=== PATIENT | female | born 1980 | race American Indian/Alaskan Native ===

== ENCOUNTER 2017-03-13 22:10 | Emergency (ER) | payer SELFPAY ==
[2017-03-13 23:00] LABS: Bilirubin,Urine NEG (Negative); Blood,Urine NEG (Negative); Ketones,Urine NEG (Negative); Leukocyte Esterase,Urine NEG (Negative); Nitrite,Urine NEG (Negative); Protein,Urine <15 mg/dL mg/dL (Negative); WBC,Urine < 1.0 /HPF (0.0-6.0)
--- NOTE | 2017-03-13 23:41 | XRay Report ---
FINAL REPORT EXAM: XR FOOT 2V RT HISTORY: INJURY/PAIN COMPARISON: None available. FINDINGS: Two views of right foot obtained. Moderate plantar calcaneal spur. Small well corticated bony fragment adjacent to the navicular bone likely reflecting a small ossicle. No acute fracture dislocation. Joint spaces are preserved. IMPRESSION: No acute bony abnormality.
[2017-03-14 03:53] VITALS: BP 149/81
--- NOTE | 2017-03-14 04:53 | Emergency Department Report ---
ED Extremity Problem HPI - General Chief complaint: Extremity Injury, Lower Stated complaint: RIGHT FOOT PAIN Time Seen by Provider: 03/14/17 04:03 Source: patient Mode of arrival: Ambulatory Limitations: No Limitations - History of Present Illness Initial comments: 37-year-old female past medical history none presents with complaint of over one week of right foot pain. States a box at work accidentally fell on her right foot. Is ambulatory without assistance but is complaining of some mid right foot pain. Awake alert and oriented 3. Denies any other injuries. Has not taken any rqmy-day-acpigfe medicines at home for the pain. Pain currently 5 out of 10. Patient states the pain is worse at the end of the workday. 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 Complaint: extremity pain Onset/Timin -: week(s) Location: right Severity scale (0 -10): 2 Quality: aching Consistency: intermittent Worsens with: weight bearing - Related Data Home Medications Medication Instructions Recorded Confirmed Last Taken NIFEdipine [NIFEdipine XL] 30 mg PO QDAY 08/10/13 08/10/13 08/09/13 09:00 Previous Rx's Medication Instructions Recorded Last Taken Type Ferrous Sulfate [Feosol 325 MG tab] 325 mg PO BID #60 tablet 04/21/13 08/09/13 09:00 Rx Ibuprofen [Motrin 800 MG tab] 800 mg PO Q6H PRN #30 tablet 04/21/13 08/10/13 09: 00 Rx oxyCODONE /ACETAMINOPHEN [Percocet 1 - 2 tab PO Q4H PRN #30 tablet 04/21/1303/01 Rx 5/325 mg] Ibuprofen [Motrin] 800 mg PO Q8HR PRN #30 tablet 03/14/17 Unknown Rx Allergies Allergy/AdvReac Type Severity Reaction Status Date / Time No Known Allergies Allergy Verified 08/10/13 09:36 ED Review of Systems ROS: Stated complaint: RIGHT FOOT PAIN Other details as noted in HPI Constitutional: denies: chills, fever Eyes: denies: eye pain, eye discharge, vision change ENT: denies: ear pain, throat pain Respiratory: denies: cough, shortness of breath, wheezing Cardiovascular: denies: chest pain, palpitations Endocrine: no symptoms reported Gastrointestinal: denies: abdominal pain, nausea, diarrhea Genitourinary: denies: urgency, dysuria, discharge Musculoskeletal: as per HPI (right foot pain). denies: back pain, joint swelling, arthralgia Skin: denies: rash, lesions Neurological: denies: headache, weakness, paresthesias Psychiatric: denies: anxiety, depression Hematological/Lymphatic: denies: easy bleeding, easy bruising ED Past Medical Hx - Past Medical History Hx Hypertension: No Hx Congestive Heart Failure: No Hx Diabetes: Yes (gestational) Hx Deep Vein Thrombosis: No Hx Renal Disease: No Hx Sickle Cell Disease: No Hx Seizures: No Hx Asthma: Yes Hx COPD: No Hx HIV: No Additional medical history: hx of gestational diabetes, exposure to herpes (DO NOT DISCUSS IN FRONT OF VISITORS). - Surgical History Additional Surgical History: 04/21/13, hernia repair when 5 yrs old - Social History Smoking Status: Never Smoker Substance Use Type: Alcohol - Medications Home Medications: Home Medications Medication Instructions Recorded Confirmed Last Taken Type Ferrous Sulfate [Feosol 325 MG tab] 325 mg PO BID #60 tablet 04/21/13 08/10/13 08/09/13 09:00 Rx Ibuprofen [Motrin 800 MG tab] 800 mg PO Q6H PRN #30 tablet 04/21/13 08/10/13 09:00 Rx oxyCODONE /ACETAMINOPHEN [Percocet 1 - 2 tab PO Q4H PRN #30 tablet 04/21/1304/28/13 Rx 5/325 mg] NIFEdipine [NIFEdipine XL] 30 mg PO QDAY 08/10/13 08/10/13 08/09/13 09:00 History Ibuprofen [Motrin] 800 mg PO Q8HR PRN #30 tablet 03/14/17 Unknown Rx ED Physical Exam - General Limitations: No Limitations General appearance: alert, in no apparent distress - Head Head exam: Present: atraumatic, normocephalic - Eye Eye exam: Present: normal appearance, PERRL, EOMI - ENT ENT exam: Present: mucous membranes moist - Neck Neck exam: Present: normal inspection - Respiratory Respiratory exam: Present: normal lung sounds bilaterally. Absent: respiratory distress - Cardiovascular Cardiovascular Exam: Present: regular rate, normal rhythm. Absent: systolic murmur, diastolic murmur, rubs, gallop - GI/Abdominal GI/Abdominal exam: Present: soft, normal bowel sounds - Extremities Exam Extremities exam: Present: normal inspection - Expanded Lower Extremity Exam Right Hip exam: Present: normal inspection, full ROM Upper Leg exam: Present: normal inspection, full ROM Knee exam: Present: normal inspection, full ROM Lower Leg exam: Present: normal inspection, full ROM Ankle exam: Present: normal inspection, full ROM (dorsi and plantar flexion intact, inversion eversion intact) Foot/Toe exam: Present: normal inspection, full ROM, tenderness (some tenderness and bottom of foot sole) Neuro vascular tendon exam: Present: no vascular compromise (distal dorsalis pedis and posterior tibial pulses intact) Gait: Positive: observed and normal - Back Exam Back exam: Present: normal inspection - Neurological Exam Neurological exam: Present: alert, oriented X3, CN II-XII intact, normal gait - Psychiatric Psychiatric exam: Present: normal affect, normal mood - Skin Skin exam: Present: warm, dry, intact, normal color. Absent: rash ED Course Vital Signs 03/13/17 03/14/17 22:13 03:52 Temperature 98.3 F 98.6 F Pulse Rate 106 H 111 H Respiratory 16 18 Rate Blood Pressure 156/99 Blood Pressure 156/99 149/81 [Left] O2 Sat by Pulse 99 100 Oximetry ED Medical Decision Making - Medical Decision Making A/P: Plantar fasciitis, right foot pain 1-x-ray shows no fractures, heel spur and tiny osteophyte 2-patient ambulatory without assistance 3-NSAIDs when necessary, I advised patient that she needs comfortable and supportive footwear 4-follow-up with podiatry Critical care attestation.: If time is entered above; I have spent that time in minutes in the direct care of this critically ill patient, excluding procedure time. ED Disposition Clinical Impression: Right foot pain, Plantar fasciitis of right foot Disposition: DC-01 TO HOME OR SELFCARE Is pt being admited?: No Does the pt Need Aspirin: No Condition: Stable Instructions: Plantar Fasciitis (ED) Additional Instructions: [email or web address] Prescriptions: Ibuprofen [Motrin] 800 mg PO Q8HR PRN #30 tablet PRN Reason: Pain Referrals: ROSHNI TSE DPM [Staff Physician] - 3-5 Days Forms: Work/School Release Form(ED) Time of Disposition: 04:53
== END 2017-03-14 05:08 | disposition home or self-care (01) ==
LOC: ED 22:10
DX: M72.2 Plantar fascial fibromatosis (principal); J45.909 Unspecified asthma, uncomplicated
CPT/HCPCS: 99283

== ENCOUNTER 2017-04-13 20:00 | Emergency (ER) | payer OTHER ==
[2017-04-13 21:26] VITALS: BP 128/78
--- NOTE | 2017-04-14 05:02 | Emergency Department Report ---
ED Lower Extremity HPI - General Chief Complaint: Extremity Injury, Lower Stated Complaint: RIGHT FOOT PAIN Time Seen by Provider: 04/14/17 04:47 Source: patient Mode of arrival: Ambulatory Limitations: No Limitations - History of Present Illness Initial Comments: Patient is a 37-year-old -[place] female who presents for right ankle pain and swelling intermittently 4 weeks , patient diagnosed with heel spurs patient denies new fall injury or trauma, patient states primary complaint is pain 4/10 and swelling after working 8-10 shifts standing, patient requesting pain medication and work excuse patient has not followed up with podiatry or orthopedic surgery, there are no new symptoms no numbness no tingling or paresthesia symptom are temporarily relieved by off loading and elevated right foot. MD Complaint: foot injury Onset/Timin -: week(s) Injury: Foot: Right Type of Injury: other (none) Place: home Severity: moderate Severity scale (0 -10): 4 Improves With: rest Worsens With: weight bearing, movement, palpation Context: other (none) Other Symptoms: other (none) Associated Symptoms: swelling, able to partially bear weight - Related Data Home Medications Medication Instructions Recorded Confirmed Last Taken NIFEdipine [NIFEdipine XL] 30 mg PO QDAY 08/10/13 08/10/13 08/09/13 09:00 Previous Rx's Medication Instructions Recorded Last Taken Type Ferrous Sulfate [Feosol 325 MG tab] 325 mg PO BID #60 tablet 04/21/13 08/09/13 09:00 Rx Ibuprofen [Motrin 800 MG tab] 800 mg PO Q6H PRN #30 tablet 04/21/13 08/10/13 09: 00 Rx oxyCODONE /ACETAMINOPHEN [Percocet 1 - 2 tab PO Q4H PRN #30 tablet 04/21/1303/01 Rx 5/325 mg] Ibuprofen [Motrin] 800 mg PO Q8HR PRN #30 tablet 03/14/17 Unknown Rx Cyclobenzaprine [Flexeril] 10 mg PO TID PRN #30 tablet 04/14/17 Unknown Rx Naproxen [Naprosyn] 500 mg PO BID PRN #30 tablet 04/14/17 Unknown Rx Allergies Allergy/AdvReac Type Severity Reaction Status Date / Time No Known Allergies Allergy Verified 08/10/13 09:36 ED Review of Systems ROS: Stated complaint: RIGHT FOOT PAIN Other details as noted in HPI Constitutional: denies: chills, fever Eyes: denies: eye pain, eye discharge, vision change ENT: denies: ear pain, throat pain Respiratory: denies: cough, shortness of breath, wheezing Cardiovascular: denies: chest pain, palpitations Endocrine: no symptoms reported Gastrointestinal: denies: abdominal pain, nausea, diarrhea Genitourinary: denies: urgency, dysuria, discharge Musculoskeletal: joint swelling, arthralgia. denies: back pain Skin: denies: rash, lesions Neurological: denies: headache, weakness, paresthesias Psychiatric: denies: anxiety, depression Hematological/Lymphatic: denies: easy bleeding, easy bruising ED Past Medical Hx - Past Medical History Previous Medical History?: Yes Hx Hypertension: No Hx Congestive Heart Failure: No Hx Diabetes: Yes (gestational) Hx Deep Vein Thrombosis: No Hx Renal Disease: No Hx Sickle Cell Disease: No Hx Seizures: No Hx Asthma: Yes Hx COPD: No Hx HIV: No Additional medical history: hx of gestational diabetes, exposure to herpes (DO NOT DISCUSS IN FRONT OF VISITORS). - Surgical History Past Surgical History?: Yes Additional Surgical History: 04/21/13, hernia repair when 5 yrs old - Social History Smoking Status: Never Smoker Substance Use Type: None - Medications Home Medications: Home Medications Medication Instructions Recorded Confirmed Last Taken Type Ferrous Sulfate [Feosol 325 MG tab] 325 mg PO BID #60 tablet 04/21/13 08/10/13 08/09/13 09:00 Rx Ibuprofen [Motrin 800 MG tab] 800 mg PO Q6H PRN #30 tablet 04/21/13 08/10/13 09:00 Rx oxyCODONE /ACETAMINOPHEN [Percocet 1 - 2 tab PO Q4H PRN #30 tablet 04/21/1304/28/13 Rx 5/325 mg] NIFEdipine [NIFEdipine XL] 30 mg PO QDAY 08/10/13 08/10/13 08/09/13 09:00 History Ibuprofen [Motrin] 800 mg PO Q8HR PRN #30 tablet 03/14/17 Unknown Rx Cyclobenzaprine [Flexeril] 10 mg PO TID PRN #30 tablet 04/14/17 Unknown Rx Naproxen [Naprosyn] 500 mg PO BID PRN #30 tablet 04/14/17 Unknown Rx ED Physical Exam - General Limitations: No Limitations General appearance: alert, in no apparent distress - Head Head exam: Present: atraumatic, normocephalic - Eye Eye exam: Present: normal appearance - ENT ENT exam: Present: mucous membranes moist - Neck Neck exam: Present: normal inspection - Respiratory Respiratory exam: Present: normal lung sounds bilaterally. Absent: respiratory distress - Cardiovascular Cardiovascular Exam: Present: regular rate, normal rhythm. Absent: systolic murmur, diastolic murmur, rubs, gallop - GI/Abdominal GI/Abdominal exam: Present: soft, normal bowel sounds - Rectal Rectal exam: Present: deferred - Extremities Exam Extremities exam: Present: full ROM, tenderness (right heel ), normal capillary refill, joint swelling. Absent: pedal edema, calf tenderness - Expanded Lower Extremity Exam Right Ankle exam: Present: full ROM, swelling (right lateral ankle ). Absent: abrasion, laceration, ecchymosis, deformity, crepidus, dislocation, erythema, anterior draw sign Foot/Toe exam: Present: full ROM, tenderness, swelling (right lateral ankle swelling ), calcaneal tenderness (righ heel tenderness no deformity no ecchymosis ). Absent: abrasion, laceration, ecchymosis, deformity, crepidus, dislocation, erythema, amputation, puncture wound, foreign body, tenderness at base of 5th metatarsal, nail avulsion, subungual hematoma Neuro vascular tendon exam: Present: no vascular compromise, abnormal cap refill. Absent: pulse deficit, motor deficit, sensory deficit, tendon deficit, extremity cold to touch, pallor, abnormal 2-point discrimination, decreased fine /light touch, foot drop, peroneal nerve deficit, significant pain with passive ROM of distal joint Gait: Positive: observed and limited by pain - Back Exam Back exam: Present: normal inspection, full ROM. Absent: tenderness, CVA tenderness (R), CVA tenderness (L), muscle spasm, paraspinal tenderness, vertebral tenderness, rash noted - Neurological Exam Neurological exam: Present: alert, oriented X3, CN II-XII intact, abnormal gait (gait limited by pain ), reflexes normal - Expanded Neurological Exam Expanded Patient oriented to: Present: person, place, time Speech: Present: fluid speech Cranial nerves: EOM's Intact: Normal, Gag Reflex: Normal, Tongue Deviation: Normal, Nystagmus: Normal Cerebellar function: Finger to Nose: Normal, Heel to Dorsey: Normal, Romberg: Normal Upper motor neuron: Michael Neglect: Normal, Pronator Drift: Normal, Babinski Sign : Normal, Sensory Extinction: Normal Sensory exam: Upper Extremity Light Touch: Normal, Upper Extremity Pin Prick: Normal, Upper Extremity Temperature: Normal, UE 2 Point Discrimination: Normal, Lower Extremity Light Touch: Normal, Lower Extremity Pin Prick: Normal, Lower Extremity Temperature: Normal, LE 2 Point Discrimination: Normal Motor strength exam: RUE: 5, LUE: 5, RLE: 5, LLE: 5 DTR: bicep (R): 0, bicep (L): 0, tricep (R): 0, tricep (L): 0, knee (R): 0, knee (L): 0, ankle (R): 0, ankle (L): 0 Best Eye Response (Audra): (4) open spontaneously Best Motor Response (Recluse): (6) obeys commands Best Verbal Response (Recluse): (5) oriented Recluse Total: 15 - Psychiatric Psychiatric exam: Present: normal affect, normal mood - Skin Skin exam: Present: warm, dry, intact, normal color. Absent: rash ED Course Vital Signs 04/13/17 21:17 Temperature 98.4 F Pulse Rate 105 H Respiratory 18 Rate Blood Pressure 128/78 O2 Sat by Pulse 100 Oximetry ED Lower Extremity MDM - Medical Decision Making Patient is a 37-year-old -[place] female who presents for right ankle pain and swelling intermittently 4 weeks , patient diagnosed with heel spurs patient denies new fall injury or trauma, patient states primary complaint is pain 4/10 and swelling after working 8-10 shifts standing, patient requesting pain medication and work excuse patient has not followed up with podiatry or orthopedic surgery, there are no new symptoms no numbness no tingling or paresthesia symptom are temporarily relieved by off loading and elevated right foot. exam: right lateral ankle swelling no ecchymosis no deformity ppepb+2 pt is ambulatory with mild limp, pt wearing regular tennis shoes as she states there the most comfortable, plan: ortho shoe, NSAIDs and Muscle relaxants, rice therapy, ankle exercises, pt directed to [facility] or orthopedic Dr. Franklin as previously directed pt verbalized agreement and understanding of same, pt will be dc'd to self in stable condition at this time. Critical care attestation.: If time is entered above; I have spent that time in minutes in the direct care of this critically ill patient, excluding procedure time. ED Disposition Clinical Impression: Heel spur Qualifiers: Laterality: right Qualified Code(s): M77.31 - Calcaneal spur, right foot Right ankle strain Qualifiers: Encounter type: sequela Qualified Code(s): S96.911S - Strain of unspecified muscle and tendon at ankle and foot level, right foot, sequela Disposition: DC-01 TO HOME OR SELFCARE Is pt being admited?: No Does the pt Need Aspirin: No Instructions: Ankle Sprain (ED), Plantar Fasciitis (ED), Arthralgia (ED), Ankle Exercises (GEN) Prescriptions: Cyclobenzaprine [Flexeril] 10 mg PO TID PRN #30 tablet PRN Reason: Muscle Spasm Naproxen [Naprosyn] 500 mg PO BID PRN #30 tablet PRN Reason: Pain Referrals: JAMMIE PACHECO MD [Primary Care Provider] - 3-5 Days KATELYN FRANKLIN MD [Staff Physician] - 3-5 Days Forms: Work/School Release Form(ED) Time of Disposition: 05:20
[2017-04-14] MEDS ORDERED: ULTRAM PO ONE (05:08)
== END 2017-04-14 05:51 | disposition home or self-care (01) ==
LOC: ED 20:00
DX: S96.911D Strain of unspecified muscle and tendon at ankle and foot level, right foot, subsequent encounter (principal); M77.9 Enthesopathy, unspecified; X58.XXXD Exposure to other specified factors, subsequent encounter
CPT/HCPCS: 99283

== ENCOUNTER 2017-07-12 18:32 | Emergency (ER) | payer SELFPAY ==
[2017-07-12 19:41] VITALS: BP 164/88
--- NOTE | 2017-07-12 20:22 | Emergency Department Report ---
HPI - General Chief Complaint: Extremity Injury, Lower Time Seen by Provider: 07/12/17 19:57 - HPI HPI: This is a 37-year-old female with no prior medical history who presents to ED complaining of right ankle pain 1 day. Patient states earlier this morning when she was on her way to work she twisted her ankle and thinks she sprained it. Patient states that she had a prescription of naproxen and Flexeril and took it at home and it helped with the pain. Patient states that she is here to have the examining needs a work note to return to work. She denies difficulty walking, loss of sensation, lesions, swelling. She admits throbbing , aching, nonradiating pain localized to the right ankle. ED Past Medical Hx - Past Medical History Hx Hypertension: No Hx Congestive Heart Failure: No Hx Diabetes: Yes (gestational) Hx Deep Vein Thrombosis: No Hx Renal Disease: No Hx Sickle Cell Disease: No Hx Seizures: No Hx Asthma: Yes Hx COPD: No Hx HIV: No Additional medical history: hx of gestational diabetes, exposure to herpes (DO NOT DISCUSS IN FRONT OF VISITORS). - Surgical History Additional Surgical History: 04/21/13, hernia repair when 5 yrs old - Social History Smoking Status: Never Smoker Substance Use Type: None - Medications Home Medications: Home Medications Medication Instructions Recorded Confirmed Last Taken Type Ferrous Sulfate [Feosol 325 MG tab] 325 mg PO BID #60 tablet 04/21/13 08/10/13 08/09/13 09:00 Rx Ibuprofen [Motrin 800 MG tab] 800 mg PO Q6H PRN #30 tablet 04/21/13 08/10/13 09:00 Rx oxyCODONE /ACETAMINOPHEN [Percocet 1 - 2 tab PO Q4H PRN #30 tablet 04/21/1304/28/13 Rx 5/325 mg] NIFEdipine [NIFEdipine XL] 30 mg PO QDAY 08/10/13 08/10/13 08/09/13 09:00 History Ibuprofen [Motrin] 800 mg PO Q8HR PRN #30 tablet 03/14/17 Unknown Rx Cyclobenzaprine [Flexeril] 10 mg PO TID PRN #30 tablet 04/14/17 Unknown Rx Naproxen [Naprosyn] 500 mg PO BID PRN #30 tablet 07/12/17 Unknown Rx ED Review of Systems ROS: Stated complaint: ANKLE PAIN Other details as noted in HPI Constitutional: denies: chills, fever Eyes: denies: eye pain, eye discharge, vision change ENT: denies: ear pain, throat pain Respiratory: denies: cough, shortness of breath, wheezing Cardiovascular: denies: chest pain, palpitations Endocrine: no symptoms reported Gastrointestinal: denies: abdominal pain, nausea, diarrhea Genitourinary: denies: urgency, dysuria, discharge Musculoskeletal: arthralgia. denies: back pain, joint swelling Skin: denies: rash, lesions Neurological: denies: headache, weakness, paresthesias Psychiatric: denies: anxiety, depression Hematological/Lymphatic: denies: easy bleeding, easy bruising Physical Exam - Physical Exam Vital Signs: Vital Signs 07/12/17 19:39 Temperature 98.5 F Pulse Rate 98 H Respiratory 18 Rate Blood Pressure 164/88 O2 Sat by Pulse 100 Oximetry Physical Exam: GENERAL: Alert and oriented x3, no apparent distress, Normal Gait, atraumatic. HEAD: Head is normocephalic and a-traumatic. EYES: Extra ocular muscles are intact. Pupils are equal, round, and reactive to light and accommodation. LUNGS: Symetrical with respiration, No wheezing, no rales or crackles, CTAB. HEART: S1, S2 present, regular rate and rhythm without murmur, no rubs, no gallops. Non tender to palpation EXTREMITIES/MUSCULOSKELETAL: Right ankle shows No cyanosis, no clubbing, no rash , no lesions or edema. Full ROM bilaterally. UE/LE Pulses 2+ bilaterally. LE and UE 5+ strength bilaterally, patient able to flex and extend her foot without any problems. Ankle warm to touch patient able to apply pressure without any problems. NEUROLOGIC: The patient is cooperative with no focal neurologic deficits.Normal speech. Normal sensation in bilateral upper and lower extremities, No loss of sensation, SKIN: Warm and dry, No lesions, No ulceration or induration present. ED Course Vital Signs 07/12/17 19:39 Temperature 98.5 F Pulse Rate 98 H Respiratory 18 Rate Blood Pressure 164/88 O2 Sat by Pulse 100 Oximetry ED Medical Decision Making - Medical Decision Making 37-year-old female presents with right ankle strain ED course: Patient states" feeling much better after she is rested it and ice it. I discussed the patient continue taking naproxen and Flexeril as needed I discussed the patient to rest ankle and keep it elevated and continue ice compression daily I discussed to follow up with primary care physician. Patient has no neuro deficit. Critical care attestation.: If time is entered above; I have spent that time in minutes in the direct care of this critically ill patient, excluding procedure time. ED Disposition Clinical Impression: Right ankle strain Qualifiers: Encounter type: initial encounter Qualified Code(s): S96.911A - Strain of unspecified muscle and tendon at ankle and foot level, right foot, initial encounter Disposition: TO HOME OR SELFCARE Is pt being admited?: No Does the pt Need Aspirin: No Condition: Stable Instructions: Ankle Exercises (GEN), Arthralgia (ED), RICE Therapy (ED) Additional Instructions: Make sure to follow up with the primary care physician as discussed. Take all your medications as you've been prescribed. If you have any worsening symptoms or develop new symptoms please return to ED immediately. Prescriptions: Naproxen [Naprosyn] 500 mg PO BID PRN #30 tablet PRN Reason: Pain Referrals: RENAY LEVY MD [Referring] - 3-5 Days [facility] [Outside] - 3-5 Days [facility] [Outside] - 3-5 Days Forms: Work/School Release Form Time of Disposition: 20:22
== END 2017-07-12 20:28 | disposition home or self-care (01) ==
LOC: ED 18:32
DX: S96.911A Strain of unspecified muscle and tendon at ankle and foot level, right foot, initial encounter (principal); J45.909 Unspecified asthma, uncomplicated; W22.8XXA Striking against or struck by other objects, initial encounter; Y93.89 Activity, other specified; Y92.89 Other specified places as the place of occurrence of the external cause; Y99.8 Other external cause status
CPT/HCPCS: 99282

== ENCOUNTER 2017-11-05 16:29 | Emergency (ER) | payer SELFPAY ==
[2017-11-05 17:24] LABS: Bilirubin,Urine NEG (Negative); Blood,Urine NEG (Negative); Color,Urine Yellow (Yellow); Mucus,Urine FEW /HPF; Protein,Urine <15 mg/dL mg/dL (Negative)
[2017-11-05 17:34] LABS: HCG Qualitative,Urine Negative (Negative)
[2017-11-05] MEDS ORDERED: ZOFRAN ODT PO ONE (21:08)
--- NOTE | 2017-11-05 21:21 | Emergency Department Report ---
ED N/V/D HPI - General Chief complaint: Nausea/Vomiting/Diarrhea Stated complaint: N/V/D Time Seen by Provider: 11/05/17 21:07 Source: patient Mode of arrival: Ambulatory Limitations: No Limitations - History of Present Illness Initial comments: 37-year-old -Armenian female comes into the emergency room for complaint of nausea vomiting and diarrhea since yesterday. Patient reports that she vomited twice today and had last diarrhea episode was doing her ER visit. She reports that she is able to drink fluids but not able to hold down foods. She denies abdominal pain no fever no chills. She denies any dysuria no vaginal bleeding or vaginal discharge. She does admit to nausea at this time. Last menstrual period was last month only lasted 2 days. It was noted in triage the patient was mildly tachycardia at 102. MD complaint: nausea, vomiting, diarrhea -: days(s) (1) Description of Vomiting: food contents Description of Diarrhea: water Associated Abdominal Pain: No Improves with: rest Worsens with: eating Associated Symptoms: denies other symptoms - Related Data Home Medications Medication Instructions Recorded Confirmed Last Taken NIFEdipine [NIFEdipine XL] 30 mg PO QDAY 08/10/13 08/10/13 08/09/13 09:00 Previous Rx's Medication Instructions Recorded Last Taken Type Ferrous Sulfate [Feosol 325 MG tab] 325 mg PO BID #60 tablet 04/21/13 08/09/13 09:00 Rx Ibuprofen [Motrin 800 MG tab] 800 mg PO Q6H PRN #30 tablet 04/21/13 08/10/13 09: 00 Rx oxyCODONE /ACETAMINOPHEN [Percocet 1 - 2 tab PO Q4H PRN #30 tablet 04/21/1303/01 Rx 5/325 mg] Ibuprofen [Motrin] 800 mg PO Q8HR PRN #30 tablet 03/14/17 Unknown Rx Cyclobenzaprine [Flexeril] 10 mg PO TID PRN #30 tablet 04/14/17 Unknown Rx Naproxen [Naprosyn] 500 mg PO BID PRN #30 tablet 07/12/17 Unknown Rx Allergies Allergy/AdvReac Type Severity Reaction Status Date / Time No Known Allergies Allergy Verified 11/05/17 16:40 ED Review of Systems ROS: Stated complaint: N/V/D Other details as noted in HPI Constitutional: denies: chills, fever Eyes: denies: eye pain, eye discharge, vision change ENT: denies: ear pain, throat pain Respiratory: denies: cough, shortness of breath, wheezing Cardiovascular: denies: chest pain, palpitations Endocrine: no symptoms reported Gastrointestinal: nausea, vomiting, diarrhea. denies: abdominal pain Genitourinary: denies: urgency, dysuria, discharge Musculoskeletal: denies: back pain, joint swelling, arthralgia Skin: denies: rash, lesions Neurological: denies: headache, weakness, paresthesias Psychiatric: denies: anxiety, depression Hematological/Lymphatic: denies: easy bleeding, easy bruising ED Past Medical Hx - Past Medical History Hx Hypertension: No Hx Congestive Heart Failure: No Hx Diabetes: Yes (gestational) Hx Deep Vein Thrombosis: No Hx Renal Disease: No Hx Sickle Cell Disease: No Hx Seizures: No Hx Asthma: Yes Hx COPD: No Hx HIV: No Additional medical history: hx of gestational diabetes, exposure to herpes (DO NOT DISCUSS IN FRONT OF VISITORS). - Surgical History Additional Surgical History: 04/21/13, hernia repair when 5 yrs old - Social History Smoking Status: Never Smoker Substance Use Type: None - Medications Home Medications: Home Medications Medication Instructions Recorded Confirmed Last Taken Type Ferrous Sulfate [Feosol 325 MG tab] 325 mg PO BID #60 tablet 04/21/13 08/10/13 08/09/13 09:00 Rx Ibuprofen [Motrin 800 MG tab] 800 mg PO Q6H PRN #30 tablet 04/21/13 08/10/13 09:00 Rx oxyCODONE /ACETAMINOPHEN [Percocet 1 - 2 tab PO Q4H PRN #30 tablet 04/21/1304/28/13 Rx 5/325 mg] NIFEdipine [NIFEdipine XL] 30 mg PO QDAY 08/10/13 08/10/13 08/09/13 09:00 History Ibuprofen [Motrin] 800 mg PO Q8HR PRN #30 tablet 03/14/17 Unknown Rx Cyclobenzaprine [Flexeril] 10 mg PO TID PRN #30 tablet 04/14/17 Unknown Rx Naproxen [Naprosyn] 500 mg PO BID PRN #30 tablet 07/12/17 Unknown Rx ED Physical Exam - General Limitations: No Limitations General appearance: alert, in no apparent distress - Head Head exam: Present: atraumatic, normocephalic - ENT ENT exam: Present: mucous membranes moist - Neck Neck exam: Present: full ROM. Absent: lymphadenopathy - Respiratory Respiratory exam: Present: normal lung sounds bilaterally. Absent: respiratory distress - Cardiovascular Cardiovascular Exam: Present: regular rate, normal rhythm. Absent: systolic murmur, diastolic murmur, rubs, gallop - GI/Abdominal GI/Abdominal exam: Present: soft, normal bowel sounds - Extremities Exam Extremities exam: Present: normal inspection - Neurological Exam Neurological exam: Present: alert, oriented X3 - Psychiatric Psychiatric exam: Present: normal affect, normal mood - Skin Skin exam: Present: warm, dry, intact, normal color. Absent: rash ED Course Vital Signs 11/05/17 11/05/17 16:41 21:24 Temperature 98.3 F Pulse Rate 102 H 93 H Respiratory 18 12 Rate Blood Pressure 148/73 Blood Pressure 140/80 [Right] O2 Sat by Pulse 98 100 Oximetry - Reevaluation(s) Reevaluation #1: 11/05/17 23:04 Patient was given Zofran and by mouth trial which she has not had any experience of vomiting or nausea. ED Medical Decision Making - Medical Decision Making Patient has been evaluated by this provider fast track. Patient is given Zofran 8 mg ODT. By mouth challenge to start in 30 minutes after having Zofran. Patient had a urinalysis which is normal there is no ketones noted. HCG negative. Critical care attestation.: If time is entered above; I have spent that time in minutes in the direct care of this critically ill patient, excluding procedure time. ED Disposition Clinical Impression: Gastroenteritis Disposition: DC-01 TO HOME OR SELFCARE Is pt being admited?: No Does the pt Need Aspirin: No Condition: Stable Instructions: Gastroenteritis (ED) Additional Instructions: Please continue to drink plenty of fluids and advance her diet as tolerated starting off with dry toes applesauce may be bananas rice grits. If her symptoms persist or gets worse please follow up with her primary care provider. Referrals: PRIMARY CARE [Primary Care Provider] - 3-5 Days [facility] [Provider Group] - 3-5 Days Forms: Work/School Release Form(ED)
[2017-11-05 21:29] VITALS: BP 140/80
== END 2017-11-05 23:22 | disposition home or self-care (01) ==
LOC: ED 16:29
DX: K52.9 Noninfective gastroenteritis and colitis, unspecified (principal); E11.9 Type 2 diabetes mellitus without complications; J45.909 Unspecified asthma, uncomplicated
CPT/HCPCS: 81001; 81025; 99283; Q0162

== ENCOUNTER 2019-02-19 22:38 | Emergency (ER) | payer SELFPAY ==
[2019-02-20 03:56] LABS: Bacteria,Urine 1+ /HPF (Negative); Bilirubin,Urine NEG (Negative); Blood,Urine NEG (Negative); Color,Urine Yellow (Yellow); Mucus,Urine 3+ /HPF; Urobilinogen,Urine < 2.0 mg/dL (<2.0)
[2019-02-20 03:57] LABS: Hematocrit 39.5 % (30.3-42.9); Hemoglobin 12.3 gm/dl (10.1-14.3); Mean Corpuscular HGB Conc 31 % (30-34); Mean Corpuscular Volume 71 fl (79-97); Platelet Count 228 K/mm3 (140-440); Red Blood Count 5.55 M/mm3 (3.65-5.03); Red Cell Distribution Width 15.9 % (13.2-15.2)
[2019-02-20 04:08] LABS: BUN/Creatinine Ratio 26; Blood Urea Nitrogen 13 mg/dL (7-17); Hemolysis Index 13
[2019-02-20] MEDS ORDERED: SODIUM CHLORIDE 0.9% 1000 ML 1,000 ML IV ONE (04:22)
--- NOTE | 2019-02-20 04:56 | Emergency Department Report ---
ED Dizziness HPI - General Chief Complaint: Dizziness Stated Complaint: DIZZY,NAUSEA,PAIN RT HAND Time Seen by Provider: 02/20/19 04:22 Source: patient Mode of arrival: Ambulatory Limitations: No Limitations - History of Present Illness Initial Comments: This is a 39-year-old female nontoxic, well nourished in appearance, no acute signs of distress presents to the ED with c/o of dizziness. Patient denies any headache or head trauma. Patient stated the dizziness is worsened with position change. Patient denies any numbness, tingling, headache, stiff neck, chest pain, shortness of breathe, numbness or tingling. Denies any visual changes or blurry vision. Denies any drug allergies. MD Complaint: dizziness, lightheadedness -: days(s) (1) Timing: gradual onset Description: sense of movement, lightheadedness History of Same: No History of Trauma: No Severity: mild Improves With: nothing Worsens With: nothing Associated Symptoms: denies other symptoms. denies: ataxia, chest pain, confusion, cough, diaphoresis, fever/chills, loss of appetite, malaise, rash, seizure, shortness of breath, syncope, weakness - Related Data Home Medications Medication Instructions Recorded Confirmed Last Taken NIFEdipine [NIFEdipine XL] 30 mg PO QDAY 08/10/13 08/10/13 08/09/13 09:00 Previous Rx's Medication Instructions Recorded Last Taken Type Ferrous Sulfate [Feosol 325 MG tab] 325 mg PO BID #60 tablet 04/21/13 08/09/13 09:00 Rx Ibuprofen [Motrin 800 MG tab] 800 mg PO Q6H PRN #30 tablet 04/21/13 08/10/13 09:00 Rx oxyCODONE /ACETAMINOPHEN [Percocet 1 - 2 tab PO Q4H PRN #30 tablet 04/21/13 04/28/13 Rx 5/325 mg] Ibuprofen [Motrin] 800 mg PO Q8HR PRN #30 tablet 03/14/17 Unknown Rx Cyclobenzaprine [Flexeril] 10 mg PO TID PRN #30 tablet 04/14/17 Unknown Rx Naproxen [Naprosyn] 500 mg PO BID PRN #30 tablet 07/12/17 Unknown Rx Meclizine [Antivert] 12.5 mg PO BID PRN #10 tablet 02/20/19 Unknown Rx Allergies Allergy/AdvReac Type Severity Reaction Status Date / Time No Known Allergies Allergy Verified 11/05/17 16:40 ED Review of Systems ROS: Stated complaint: DIZZY,NAUSEA,PAIN RT HAND Other details as noted in HPI Constitutional: denies: chills, fever Eyes: denies: eye pain, eye discharge, vision change ENT: denies: ear pain, throat pain Respiratory: denies: cough, shortness of breath, wheezing Cardiovascular: denies: chest pain, palpitations Endocrine: no symptoms reported Gastrointestinal: denies: abdominal pain, nausea, diarrhea Genitourinary: denies: urgency, dysuria, discharge Musculoskeletal: denies: back pain, joint swelling, arthralgia Skin: denies: rash, lesions Neurological: vertigo. denies: headache, weakness, paresthesias Psychiatric: denies: anxiety, depression Hematological/Lymphatic: denies: easy bleeding, easy bruising ED Past Medical Hx - Past Medical History Previous Medical History?: Yes Hx Hypertension: Yes Hx Congestive Heart Failure: No Hx Diabetes: Yes (gestational) Hx Deep Vein Thrombosis: No Hx Renal Disease: No Hx Sickle Cell Disease: No Hx Seizures: No Hx Asthma: Yes Hx COPD: No Hx HIV: No Additional medical history: hx of gestational diabetes - Surgical History Past Surgical History?: Yes Additional Surgical History: 04/21/13, hernia repair when 5 yrs old - Social History Smoking Status: Never Smoker Substance Use Type: None - Medications Home Medications: Home Medications Medication Instructions Recorded Confirmed Last Taken Type Ferrous Sulfate [Feosol 325 MG tab] 325 mg PO BID #60 tablet 04/21/13 08/10/13 08/09/13 09:00 Rx Ibuprofen [Motrin 800 MG tab] 800 mg PO Q6H PRN #30 tablet 04/21/13 08/10/13 08/10/13 09:00 Rx oxyCODONE /ACETAMINOPHEN [Percocet 1 - 2 tab PO Q4H PRN #30 tablet 04/21/13 08/10/13 04/28/13 Rx 5/325 mg] NIFEdipine [NIFEdipine XL] 30 mg PO QDAY 08/10/13 08/10/13 08/09/13 09:00 History Ibuprofen [Motrin] 800 mg PO Q8HR PRN #30 tablet 03/14/17 Unknown Rx Cyclobenzaprine [Flexeril] 10 mg PO TID PRN #30 tablet 04/14/17 Unknown Rx Naproxen [Naprosyn] 500 mg PO BID PRN #30 tablet 07/12/17 Unknown Rx Meclizine [Antivert] 12.5 mg PO BID PRN #10 tablet 02/20/19 Unknown Rx ED Physical Exam - General Limitations: No Limitations General appearance: alert, in no apparent distress - Head Head exam: Present: atraumatic, normocephalic - Neck Neck exam: Present: normal inspection, full ROM. Absent: tenderness, meningismus, lymphadenopathy - Respiratory Respiratory exam: Present: normal lung sounds bilaterally. Absent: respiratory distress, wheezes, rales, rhonchi, stridor, chest wall tenderness, decreased breath sounds, prolonged expiratory - Cardiovascular Cardiovascular Exam: Present: regular rate, normal rhythm, normal heart sounds - Extremities Exam Extremities exam: Present: normal inspection, full ROM, normal capillary refill. Absent: tenderness - Back Exam Back exam: Present: normal inspection, full ROM. Absent: tenderness, CVA t enderness (R), CVA tenderness (L), muscle spasm, paraspinal tenderness, vertebral tenderness, rash noted - Neurological Exam Neurological exam: Present: alert, oriented X3, normal gait - Expanded Neurological Exam Expanded Patient oriented to: Present: person, place, time Cranial nerves: EOM's Intact: Normal, Facial Sensation: Normal Cerebellar function: Finger to Nose: Normal Upper motor neuron: Pronator Drift: Normal, Sensory Extinction: Normal Motor strength exam: RUE: 5, LUE: 5, RLE: 5, LLE: 5 Best Eye Response ([place]): (4) open spontaneously Best Motor Response ([place]): (6) obeys commands Best Verbal Response ([place]): (5) oriented [place] Total: 15 - Psychiatric Psychiatric exam: Present: normal affect, normal mood - Skin Skin exam: Present: warm, dry, intact, normal color. Absent: rash ED Course Vital Signs 02/19/19 02/20/19 22:46 02:57 Temperature 98.7 F 97.9 F Pulse Rate 114 H 94 H Respiratory 18 18 Rate Blood Pressure 151/93 162/96 O2 Sat by Pulse 97 100 Oximetry - Reevaluation(s) Reevaluation #1: 02/20/19 04:53 Patient is speaking in full sentences with no signs of distress noted. ED Medical Decision Making - Lab Data Result diagrams: 02/20/19 03:14 02/20/19 03:14 - Medical Decision Making This is a 39-year-old female that presents with dizziness. Patient is stable and was examined by me. EKG is normal sinus rhythm with no ST abnormalities. Labs are unremarkable. Urine obtained. Orthostatic vital signs obtained and within normal limits. Patient received 1 L of normal saline which she stated his symptoms of dizziness has subsided and resolved. Patient is neurologically stable. Patient was instructed to Follow-up with a primary care doctor in 3-5 days or if symptoms worsen and continue return to emergency room as soon as possible. At time of discharge, the patient does not seem toxic or ill in appearance. No acute signs of distress noted. Patient agrees to discharge treatment plan of care. No further questions noted by the patient. Critical care attestation.: If time is entered above; I have spent that time in minutes in the direct care of this critically ill patient, excluding procedure time. ED Disposition Clinical Impression: Dizziness Disposition: DC-01 TO HOME OR SELFCARE Is pt being admited?: No Does the pt Need Aspirin: No Condition: Stable Instructions: Dizziness (ED), Meclizine (By mouth) Additional Instructions: Follow-up with a primary care doctor in 3-5 days or if symptoms worsen and continue return to emergency room as soon as possible. Prescriptions: Meclizine [Antivert] 12.5 mg PO BID PRN #10 tablet PRN Reason: Vertigo Referrals: PRIMARY CAREMD [Referring] - 3-5 Days LEX WHITLEY MD [Staff Physician] - 3-5 Days [facility] [Outside] - 3-5 Days [facility] [Outside] - 3-5 Days Forms: Work/School Release Form(ED)
[2019-02-20 07:09] VITALS: BP 129/78
== END 2019-02-20 07:11 | disposition home or self-care (01) ==
LOC: ED 22:38
DX: R42 Dizziness and giddiness (principal); I11.0 Hypertensive heart disease with heart failure; E11.9 Type 2 diabetes mellitus without complications; J45.909 Unspecified asthma, uncomplicated; Z98.890 Other specified postprocedural states
CPT/HCPCS: 36415; 80048; 81001; 84703; 85027; 93005; 93010; 96360; 99283; J7030

== ENCOUNTER 2019-02-28 22:39 | Emergency (ER) | payer SELFPAY ==
[2019-03-01] MEDS ORDERED: AMOXICILLIN/K CLAV 875/125MG TAB PO ONE (01:45)
[2019-03-01] MEDS ORDERED: IBUPROFEN 800 MG TAB PO ONE (01:45)
--- NOTE | 2019-03-01 02:28 | Emergency Department Report ---
ED ENT HPI - General Chief complaint: Earache Stated complaint: SORE THROAT,EAR ACHE Time Seen by Provider: 03/01/19 01:45 Source: patient Mode of arrival: Ambulatory Limitations: No Limitations - History of Present Illness Initial comments: Mrs. Stewart is a 39 y/o aaf who presents for left ear pain 5/10 aching x 1 week. pt has hx recurring sinusitis. pt states noc fever. other symptoms include sinus pain and pressure. Symptoms are improved by nothing, symptoms are exacerbated by movement and activity. MD complaint: ear pain Onset/Timin -: week(s) Severity: moderate Severity scale (0 -10): 5 Quality: aching Consistency: constant Improves with: none Worsens with: movement Associated Symptoms: fever - Related Data Home Medications Medication Instructions Recorded Confirmed Last Taken NIFEdipine [NIFEdipine XL] 30 mg PO QDAY 08/10/13 08/10/13 08/09/13 09:00 Previous Rx's Medication Instructions Recorded Last Taken Type Ferrous Sulfate [Feosol 325 MG tab] 325 mg PO BID #60 tablet 04/21/13 08/09/13 09:00 Rx Ibuprofen [Motrin 800 MG tab] 800 mg PO Q6H PRN #30 tablet 04/21/13 08/10/13 09:00 Rx oxyCODONE /ACETAMINOPHEN [Percocet 1 - 2 tab PO Q4H PRN #30 tablet 04/21/13 04/28/13 Rx 5/325 mg] Ibuprofen [Motrin] 800 mg PO Q8HR PRN #30 tablet 03/14/17 Unknown Rx Cyclobenzaprine [Flexeril] 10 mg PO TID PRN #30 tablet 04/14/17 Unknown Rx Naproxen [Naprosyn] 500 mg PO BID PRN #30 tablet 07/12/17 Unknown Rx Meclizine [Antivert] 12.5 mg PO BID PRN #10 tablet 02/20/19 Unknown Rx Amoxicillin/Potassium Clav 1 each PO BID 10 Days #20 tablet 03/01/19 Unknown Rx [Augmentin 875-125 Tablet] Ibuprofen [Motrin 800 MG tab] 800 mg PO Q8HR PRN #30 tablet 03/01/19 Unknown Rx diphenhydrAMINE [Benadryl CAP] 25 mg PO Q8HR PRN #30 capsule 03/01/19 Unknown Rx predniSONE [Deltasone] 40 mg PO QDAY 5 Days #10 tab 03/01/19 Unknown Rx Allergies Allergy/AdvReac Type Severity Reaction Status Date / Time No Known Allergies Allergy Verified 11/05/17 16:40 ED Dental HPI - General Chief complaint: Earache Stated complaint: SORE THROAT,EAR ACHE Time Seen by Provider: 03/01/19 01:45 Source: patient Mode of arrival: Ambulatory Limitations: No Limitations - Related Data Home Medications Medication Instructions Recorded Confirmed Last Taken NIFEdipine [NIFEdipine XL] 30 mg PO QDAY 08/10/13 08/10/13 08/09/13 09:00 Previous Rx's Medication Instructions Recorded Last Taken Type Ferrous Sulfate [Feosol 325 MG tab] 325 mg PO BID #60 tablet 04/21/13 08/09/13 09:00 Rx Ibuprofen [Motrin 800 MG tab] 800 mg PO Q6H PRN #30 tablet 04/21/13 08/10/13 09:00 Rx oxyCODONE /ACETAMINOPHEN [Percocet 1 - 2 tab PO Q4H PRN #30 tablet 04/21/13 04/28/13 Rx 5/325 mg] Ibuprofen [Motrin] 800 mg PO Q8HR PRN #30 tablet 03/14/17 Unknown Rx Cyclobenzaprine [Flexeril] 10 mg PO TID PRN #30 tablet 04/14/17 Unknown Rx Naproxen [Naprosyn] 500 mg PO BID PRN #30 tablet 07/12/17 Unknown Rx Meclizine [Antivert] 12.5 mg PO BID PRN #10 tablet 02/20/19 Unknown Rx Amoxicillin/Potassium Clav 1 each PO BID 10 Days #20 tablet 03/01/19 Unknown Rx [Augmentin 875-125 Tablet] Ibuprofen [Motrin 800 MG tab] 800 mg PO Q8HR PRN #30 tablet 03/01/19 Unknown Rx diphenhydrAMINE [Benadryl CAP] 25 mg PO Q8HR PRN #30 capsule 03/01/19 Unknown Rx predniSONE [Deltasone] 40 mg PO QDAY 5 Days #10 tab 03/01/19 Unknown Rx Allergies Allergy/AdvReac Type Severity Reaction Status Date / Time No Known Allergies Allergy Verified 11/05/17 16:40 ED Review of Systems ROS: Stated complaint: SORE THROAT,EAR ACHE Other details as noted in HPI Constitutional: denies: chills, fever Eyes: denies: eye pain, eye discharge, vision change ENT: ear pain Respiratory: denies: cough, shortness of breath, wheezing Cardiovascular: as per HPI Endocrine: no symptoms reported Gastrointestinal: denies: abdominal pain, nausea, diarrhea Genitourinary: denies: urgency, dysuria, discharge Musculoskeletal: denies: back pain, joint swelling, arthralgia Skin: denies: rash, lesions Neurological: denies: headache, weakness, paresthesias Psychiatric: denies: anxiety, depression Hematological/Lymphatic: denies: easy bleeding, easy bruising ED Past Medical Hx - Past Medical History Previous Medical History?: Yes Hx Hypertension: Yes Hx Congestive Heart Failure: No Hx Diabetes: Yes (gestational) Hx Deep Vein Thrombosis: No Hx Renal Disease: No Hx Sickle Cell Disease: No Hx Seizures: No Hx Asthma: Yes Hx COPD: No Hx HIV: No Additional medical history: hx of gestational diabetes - Surgical History Past Surgical History?: Yes Additional Surgical History: 04/21/13, hernia repair when 5 yrs old - Social History Smoking Status: Never Smoker Substance Use Type: None - Medications Home Medications: Home Medications Medication Instructions Recorded Confirmed Last Taken Type Ferrous Sulfate [Feosol 325 MG tab] 325 mg PO BID #60 tablet 04/21/13 08/10/13 08/09/13 09:00 Rx Ibuprofen [Motrin 800 MG tab] 800 mg PO Q6H PRN #30 tablet 04/21/13 08/10/13 08/10/13 09:00 Rx oxyCODONE /ACETAMINOPHEN [Percocet 1 - 2 tab PO Q4H PRN #30 tablet 04/21/13 08/10/13 04/28/13 Rx 5/325 mg] NIFEdipine [NIFEdipine XL] 30 mg PO QDAY 08/10/13 08/10/13 08/09/13 09:00 History Ibuprofen [Motrin] 800 mg PO Q8HR PRN #30 tablet 03/14/17 Unknown Rx Cyclobenzaprine [Flexeril] 10 mg PO TID PRN #30 tablet 04/14/17 Unknown Rx Naproxen [Naprosyn] 500 mg PO BID PRN #30 tablet 07/12/17 Unknown Rx Meclizine [Antivert] 12.5 mg PO BID PRN #10 tablet 02/20/19 Unknown Rx Amoxicillin/Potassium Clav 1 each PO BID 10 Days #20 tablet 03/01/19 Unknown Rx [Augmentin 875-125 Tablet] Ibuprofen [Motrin 800 MG tab] 800 mg PO Q8HR PRN #30 tablet 03/01/19 Unknown Rx diphenhydrAMINE [Benadryl CAP] 25 mg PO Q8HR PRN #30 capsule 03/01/19 Unknown Rx predniSONE [Deltasone] 40 mg PO QDAY 5 Days #10 tab 03/01/19 Unknown Rx ED Physical Exam - General Limitations: No Limitations General appearance: alert, in no apparent distress - Head Head exam: Present: atraumatic, normocephalic - Eye Eye exam: Present: normal appearance, PERRL, EOMI Pupils: Present: normal accommodation - ENT ENT exam: Present: mucous membranes moist - Expanded ENT Exam Expanded Ear exam: Present: normal external inspection, other (bilat frontal and maxillary sinus pain to palpation no swelling no erythema ) TM/Canal exam: Erythema: Right TM, Left TM, Effusion: Right TM Mouth exam: Absent: trismus Throat exam: Positive: tonsillar erythema, tonsillomegaly, tonsillar exudate. Negative: R peritonsillar mass, L peritonsillar mass - Neck Neck exam: Present: normal inspection, full ROM, lymphadenopathy, other (uvula midline no exudate no lesions no stridor ). Absent: tenderness, meningismus, thyromegaly - Respiratory Respiratory exam: Present: normal lung sounds bilaterally. Absent: respiratory distress, wheezes, stridor, chest wall tenderness - Cardiovascular Cardiovascular Exam: Present: regular rate, normal rhythm, normal heart sounds. Absent: systolic murmur, diastolic murmur, rubs, gallop - GI/Abdominal GI/Abdominal exam: Present: soft, normal bowel sounds - Rectal Rectal exam: Present: deferred - Extremities Exam Extremities exam: Present: normal inspection, full ROM - Back Exam Back exam: Present: normal inspection, full ROM. Absent: tenderness, rash noted - Neurological Exam Neurological exam: Present: alert, oriented X3, CN II-XII intact, normal gait - Psychiatric Psychiatric exam: Present: normal affect, normal mood - Skin Skin exam: Present: warm, dry, intact, normal color. Absent: rash ED Course Vital Signs 02/28/19 22:57 Temperature 98.7 F Pulse Rate 103 H Respiratory 18 Rate Blood Pressure 133/79 O2 Sat by Pulse 99 Oximetry ED Medical Decision Making - Medical Decision Making this is sinusitis, plan: augmentin, ibuprofren, prednisone , follow up with pcp in 2-3 days, return to ed if symptoms worsen pt verbalized agreement and understanding of discharge plan. Critical care attestation.: If time is entered above; I have spent that time in minutes in the direct care of this critically ill patient, excluding procedure time. ED Disposition Clinical Impression: Sinusitis Qualifiers: Sinusitis location: maxillary Chronicity: acute Recurrence: recurrent Qualified Code(s): J01.01 - Acute recurrent maxillary sinusitis URI (upper respiratory infection) Qualifiers: URI type: unspecified URI Qualified Code(s): J06.9 - Acute upper respiratory infection, unspecified Disposition: TO HOME OR SELFCARE Is pt being admited?: No Does the pt Need Aspirin: No Condition: Stable Instructions: Sinusitis (ED) Prescriptions: Amoxicillin/Potassium Clav [Augmentin 875-125 Tablet] 1 each PO BID 10 Days #20 tablet diphenhydrAMINE [Benadryl CAP] 25 mg PO Q8HR PRN #30 capsule PRN Reason: sinus congestion predniSONE [Deltasone] 40 mg PO QDAY 5 Days #10 tab Ibuprofen [Motrin 800 MG tab] 800 mg PO Q8HR PRN #30 tablet PRN Reason: pain fever Referrals: PRIMARY CARE,MD [Primary Care Provider] - 3-5 Days Forms: Work/School Release Form(ED) Time of Disposition: 02:42
[2019-03-01 02:50] VITALS: BP 120/66
== END 2019-03-01 02:50 | disposition home or self-care (01) ==
LOC: ED 22:39
DX: J01.01 Acute recurrent maxillary sinusitis (principal); J06.9 Acute upper respiratory infection, unspecified; I10 Essential (primary) hypertension; J45.909 Unspecified asthma, uncomplicated
CPT/HCPCS: 99282

== ENCOUNTER 2020-04-30 15:53 | Emergency (ER) | payer SELFPAY ==
--- NOTE | 2020-04-30 17:22 | Emergency Department Report ---
ED Female HPI - General Chief complaint: Vaginal Bleeding Stated complaint: VAGINAL BLEEDING CONGESTION Time Seen by Provider: 04/30/20 16:36 Source: patient Mode of arrival: Ambulatory Limitations: No Limitations - History of Present Illness Initial comments: Patient is a 40-year-old female presents emergency room complaints of vaginal bleeding for 2 weeks. She states that she passed one large blood clot. She states that she has some mild lower abdominal cramping and pressure. She denies any significant abdominal pain. She denies any fever, nausea, vomiting, diarrhea, back pain, urinary symptoms, abnormal vaginal discharge. She is not on any control. She states that she took [id number] test and it was negative. She has a past medical history of hypertension but has not taken medication in 1 year. No allergies to medications. She is a non-smoker. She states that she also had abnormal cycle in March, she states that she had bleeding from 03/18/2020-03/20/2020. She states that she then began having bleedi ng again from 03/31/2020-04/10/2020, she has not followed up with a [facility]. - Related Data Home Medications Medication Instructions Recorded Confirmed Last Taken NIFEdipine [NIFEdipine XL] 30 mg PO QDAY 08/10/13 08/10/13 08/09/13 09:00 Previous Rx's Medication Instructions Recorded Last Taken Type Ferrous Sulfate [Feosol 325 MG tab] 325 mg PO BID #60 tablet 04/21/13 08/09/13 09:00 Rx Ibuprofen [Motrin 800 MG tab] 800 mg PO Q6H PRN #30 tablet 04/21/13 08/10/13 09:00 Rx oxyCODONE /ACETAMINOPHEN [Percocet 1 - 2 tab PO Q4H PRN #30 tablet 04/21/13 04/28/13 Rx 5/325 mg] Ibuprofen [Motrin] 800 mg PO Q8HR PRN #30 tablet 03/14/17 Unknown Rx Cyclobenzaprine [Flexeril] 10 mg PO TID PRN #30 tablet 04/14/17 Unknown Rx Naproxen [Naprosyn] 500 mg PO BID PRN #30 tablet 07/12/17 Unknown Rx Meclizine [Antivert] 12.5 mg PO BID PRN #10 tablet 02/20/19 Unknown Rx Amoxicillin/Potassium Clav 1 each PO BID 10 Days #20 tablet 03/01/19 Unknown Rx [Augmentin 875-125 Tablet] Ibuprofen [Motrin 800 MG tab] 800 mg PO Q8HR PRN #30 tablet 03/01/19 Unknown Rx diphenhydrAMINE [Benadryl CAP] 25 mg PO Q8HR PRN #30 capsule 03/01/19 Unknown Rx predniSONE [Deltasone] 40 mg PO QDAY 5 Days #10 tab 03/01/19 Unknown Rx Ondansetron [Zofran ODT TAB] 8 mg PO Q12HR #20 tab.rapdis 12/04/19 Unknown Rx amLODIPine 5 mg PO DAILY #30 tab 04/30/20 Unknown Rx medroxyPROGESTERone ACETATE 10 mg PO QDAY 10 Days #10 tablet 04/30/20 Unknown Rx [Provera] Allergies Allergy/AdvReac Type Severity Reaction Status Date / Time No Known Allergies Allergy Verified 11/05/17 16:40 ED Review of Systems ROS: Stated complaint: VAGINAL BLEEDING CONGESTION Other details as noted in HPI Comment: All other systems reviewed and negative ED Past Medical Hx - Past Medical History Hx Hypertension: Yes Hx Congestive Heart Failure: No Hx Diabetes: Yes (gestational) Hx Deep Vein Thrombosis: No Hx Renal Disease: No Hx Sickle Cell Disease: No Hx Seizures: No Hx Asthma: Yes Hx COPD: No Hx HIV: No Additional medical history: hx of gestational diabetes - Surgical History Additional Surgical History: 04/21/13, hernia repair when 5 yrs old - Social History Smoking Status: Never Smoker - Medications Home Medications: Home Medications Medication Instructions Recorded Confirmed Last Taken Type Ferrous Sulfate [Feosol 325 MG tab] 325 mg PO BID #60 tablet 04/21/13 08/10/13 08/09/13 09:00 Rx Ibuprofen [Motrin 800 MG tab] 800 mg PO Q6H PRN #30 tablet 04/21/13 08/10/13 08/10/13 09:00 Rx oxyCODONE /ACETAMINOPHEN [Percocet 1 - 2 tab PO Q4H PRN #30 tablet 04/21/13 08/10/13 04/28/13 Rx 5/325 mg] NIFEdipine [NIFEdipine XL] 30 mg PO QDAY 08/10/13 08/10/13 08/09/13 09:00 Hi story Ibuprofen [Motrin] 800 mg PO Q8HR PRN #30 tablet 03/14/17 Unknown Rx Cyclobenzaprine [Flexeril] 10 mg PO TID PRN #30 tablet 04/14/17 Unknown Rx Naproxen [Naprosyn] 500 mg PO BID PRN #30 tablet 07/12/17 Unknown Rx Meclizine [Antivert] 12.5 mg PO BID PRN #10 tablet 02/20/19 Unknown Rx Amoxicillin/Potassium Clav 1 each PO BID 10 Days #20 tablet 03/01/19 Unknown Rx [Augmentin 875-125 Tablet] Ibuprofen [Motrin 800 MG tab] 800 mg PO Q8HR PRN #30 tablet 03/01/19 Unknown Rx diphenhydrAMINE [Benadryl CAP] 25 mg PO Q8HR PRN #30 capsule 03/01/19 Unknown Rx predniSONE [Deltasone] 40 mg PO QDAY 5 Days #10 tab 03/01/19 Unknown Rx Ondansetron [Zofran ODT TAB] 8 mg PO Q12HR #20 tab.rapdis 12/04/19 Unknown Rx amLODIPine 5 mg PO DAILY #30 tab 04/30/20 Unknown Rx medroxyPROGESTERone ACETATE 10 mg PO QDAY 10 Days #10 tablet 04/30/20 Unknown Rx [Provera] ED Physical Exam - General Limitations: No Limitations General appearance: alert, in no apparent distress - Head Head exam: Present: atraumatic, normocephalic - Eye Eye exam: Present: normal appearance - ENT ENT exam: Present: mucous membranes moist - Respiratory Respiratory exam: Present: normal lung sounds bilaterally. Absent: respiratory distress, wheezes, rales, rhonchi, stridor, chest wall tenderness, accessory muscle use, decreased breath sounds, prolonged expiratory - Cardiovascular Cardiovascular Exam: Present: regular rate, normal rhythm, normal heart sounds. Absent: systolic murmur, diastolic murmur, rubs, gallop - GI/Abdominal GI/Abdominal exam: Present: soft, normal bowel sounds. Absent: distended, tenderness, guarding, rebound, rigid - Neurological Exam Neurological exam: Present: alert, oriented X3 - Psychiatric Psychiatric exam: Present: normal affect, normal mood - Skin Skin exam: Present: warm, dry, intact ED Course Vital Signs 04/30/20 04/30/20 16:27 19:59 Temperature 98.0 F Pulse Rate 87 81 Respiratory 18 18 Rate Blood Pressure 173/104 Blood Pressure 149/93 [Left] O2 Sat by Pulse 96 99 Oximetry ED Medical Decision Making - Lab Data Result diagrams: 04/30/20 17:08 04/30/20 17:08 Lab Results 04/30/20 04/30/20 04/30/20 Range/Units 17:08 17:08 17:08 WBC 5.7 (4.5-11.0) K/mm3 RBC 5.10 H (3.65-5.03) M/mm3 Hgb 11.7 (10.1-14.3) gm/dl Hct 37.4 (30.3-42.9) % MCV 73 L (79-97) fl MCH 23 L (28-32) pg MCHC 31 (30-34) % RDW 15.2 (13.2-15.2) % Plt Count 235 (140-440) K/mm3 Lymph % (Auto) 50.3 H (13.4-35.0) % Traverse % (Auto) 4.9 (0.0-7.3) % Eos % (Auto) 4.4 H (0.0-4.3) % Baso % (Auto) 1.7 (0.0-1.8) % Lymph # (Auto) 2.9 (1.2-5.4) K/mm3 Traverse # (Auto) 0.3 (0.0-0.8) K/mm3 Eos # (Auto) 0.3 (0.0-0.4) K/mm3 Baso # (Auto) 0.1 (0.0-0.1) K/mm3 Seg Neutrophils % 38.7 L (40.0-70.0) % Seg Neutrophils # 2.2 (1.8-7.7) K/mm3 Sodium 138 (137-145) mmol/L Potassium 4.0 (3.6-5.0) mmol/L Chloride 102.3 (98-107) mmol/L Carbon Dioxide 29 (22-30) mmol/L Anion Gap 11 mmol/L BUN 9 (7-17) mg/dL Creatinine 0.6 (0.6-1.2) mg/dL Estimated GFR > 60 ml/min BUN/Creatinine Ratio 15 % Glucose 91 (65-100) mg/dL Calcium 8.7 (8.4-10.2) mg/dL Total Bilirubin 0.30 (0.1-1.2) mg/dL AST 14 (5-40) units/L ALT 12 (7-56) units/L Alkaline Phosphatase 98 (35-129) units/L Total Protein 6.9 (6.3-8.2) g/dL Albumin 4.1 (3.9-5) g/dL Albumin/Globulin Ratio 1.5 % HCG, Quant < 2 (0-4) mIU/mL Urine Color (Yellow) Urine Turbidity (Clear) Urine pH (5.0-7.0) Ur Specific Girard (1.003-1.030) Urine Protein (Negative) mg/dL Urine Glucose (UA) (Negative) mg/dL Urine Ketones (Negative) mg/dL Urine Blood (Negative) Urine Nitrite (Negative) Urine Bilirubin (Negative) Urine Urobilinogen (<2.0) mg/dL Ur Leukocyte Esterase (Negative) Urine WBC (Auto) (0.0-6.0) /HPF Urine RBC (Auto) (0.0-6.0) /HPF U Epithel Cells (Auto) (0-13.0) /HPF Urine Mucus /HPF 04/30/20 Range/Units 17:13 WBC (4.5-11.0) K/mm3 RBC (3.65-5.03) M/mm3 Hgb (10.1-14.3) gm/dl Hct (30.3-42.9) % MCV (79-97) fl MCH (28-32) pg MCHC (30-34) % RDW (13.2-15.2) % Plt Count (140-440) K/mm3 Lymph % (Auto) (13.4-35.0) % Traverse % (Auto) (0.0-7.3) % Eos % (Auto) (0.0-4.3) % Baso % (Auto) (0.0-1.8) % Lymph # (Auto) (1.2-5.4) K/mm3 Traverse # (Auto) (0.0-0.8) K/mm3 Eos # (Auto) (0.0-0.4) K/mm3 Baso # (Auto) (0.0-0.1) K/mm3 Seg Neutrophils % (40.0-70.0) % Seg Neutrophils # (1.8-7.7) K/mm3 Sodium (137-145) mmol/L Potassium (3.6-5.0) mmol/L Chloride (98-107) mmol/L Carbon Dioxide (22-30) mmol/L Anion Gap mmol/L BUN (7-17) mg/dL Creatinine (0.6-1.2) mg/dL Estimated GFR ml/min BUN/Creatinine Ratio % Glucose (65-100) mg/dL Calcium (8.4-10.2) mg/dL Total Bilirubin (0.1-1.2) mg/dL AST (5-40) units/L ALT (7-56) units/L Alkaline Phosphatase (35-129) units/L Total Protein (6.3-8.2) g/dL Albumin (3.9-5) g/dL Albumin/Globulin Ratio % HCG, Quant (0-4) mIU/mL Urine Color Yellow (Yellow) Urine Turbidity Clear (Clear) Urine pH 6.0 (5.0-7.0) Ur Specific Girard 1.027 (1.003-1.030) Urine Protein 100 mg/dl (Negative) mg/dL Urine Glucose (UA) Neg (Negative) mg/dL Urine Ketones Neg (Negative) mg/dL Urine Blood Lg (Negative) Urine Nitrite Neg (Negative) Urine Bilirubin Neg (Negative) Urine Urobilinogen 2.0 (<2.0) mg/dL Ur Leukocyte Esterase Neg (Negative) Urine WBC (Auto) 4.0 (0.0-6.0) /HPF Urine RBC (Auto) 88.0 (0.0-6.0) /HPF U Epithel Cells (Auto) 2.0 (0-13.0) /HPF Urine Mucus 2+ /HPF - Medical Decision Making Patient is a 40-year-old female presents emergency room complaints of vaginal bleeding for 2 weeks. She states that she passed one large blood clot. She states that she has some mild lower abdominal cramping and pressure. She denies any significant abdominal pain. She denies any fever, nausea, vomiting, diarrhea, back pain, urinary symptoms, abnormal vaginal discharge. She is not on any control. She states that she took [id number] test and it was negative. She has a past medical history of hypertension but has not taken medication in 1 year. No allergies to medications. She is a non-smoker. She states that she also had abnormal cycle in March, she states that she had bleeding from 03/18/2020-03/20/2020. She states that she then began having bleeding again from 03/31/2020-04/10/2020, she has not followed up with a [facility]. Initial vitals with elevated blood pressure which improved upon repeat. No abdominal tenderness on exam, no guarding, no rebound, no rigidity, normal bowel sounds, no peritoneal signs. Labs are normal. H&H is normal. hCG quant is less than 2. UA shows proteinuria likely secondary to hypertension. Renal function is normal. Patient will be started on low-dose amlodipine and given primary care follow-up for close blood pressure monitoring. Patient given pre scription for Provera due to AUB. Advised patient Please take medication as prescribed. Increase your water intake. Follow-up with a primary care doctor. Follow-up with [facility]. Please eat a low-sodium diet. Incorporate 30 to 60 minutes of daily exercise. Please keep a blood pressure log and take this to the primary care doctor. Please focus on weight management. Return to emergency room for any new or worsening symptoms. Critical care attestation.: If time is entered above; I have spent that time in minutes in the direct care of this critically ill patient, excluding procedure time. ED Disposition Clinical Impression: Abnormal uterine bleeding (AUB) HTN (hypertension) Qualifiers: Hypertension type: unspecified Qualified Code(s): I10 - Essential (primary) hypertension Disposition: - TO HOME OR SELFCARE Is pt being admited?: No Does the pt Need Aspirin: No Condition: Stable Instructions: Abnormal Uterine Bleeding, Hypertension, Adult, [id number], Low-Sodium Eating Plan, Hypertension (ED) Additional Instructions: Please take medication as prescribed. Increase your water intake. Follow-up with a primary care doctor. Follow-up with [facility]. Please eat a low-sodium diet. Incorporate 30 to 60 minutes of daily exercise. Please keep a blood pressure log and take this to the primary care doctor. Please focus on weight management. Return to emergency room for any new or worsening symptoms. Your blood work today is normal, your hCG hormone level is negative, you are not Prescriptions: amLODIPine 5 mg PO DAILY #30 tab medroxyPROGESTERone ACETATE [Provera] 10 mg PO QDAY 10 Days #10 tablet Referrals: DONTA LEON MD [Staff Physician] - 3-5 Days [facility] [Provider Group] - 3-5 Days [facility], [LAB/CONTRACT] - 3-5 Days [facility] [Provider Group] - 3-5 Days [facility] [Provider Group] - 3-5 Days [facility] [Provider Group] - 3-5 Days [facility] [Primary Care Provider] - 3-5 Days Forms: Work/School Release Form(ED) Time of Disposition: 19:47 Print Language: PERSIAN
[2020-04-30 17:43] LABS: Bilirubin,Urine NEG (Negative); Blood,Urine LG (Negative); Color,Urine Yellow (Yellow); Mucus,Urine 2+ /HPF
[2020-04-30 18:27] LABS: Basophils # (Auto) 0.1 K/mm3 (0.0-0.1); Basophils % (Auto) 1.7 % (0.0-1.8); Eosinophils # (Auto) 0.3 K/mm3 (0.0-0.4); Eosinophils % (Auto) 4.4 % (0.0-4.3); Hematocrit 37.4 % (30.3-42.9); Hemoglobin 11.7 gm/dl (10.1-14.3); Lymphocytes # (Auto) 2.9 K/mm3 (1.2-5.4); Lymphocytes % (Auto) 50.3 % (13.4-35.0); Mean Corpuscular HGB Conc 31 % (30-34); Mean Corpuscular Volume 73 fl (79-97); Monocytes # (Auto) 0.3 K/mm3 (0.0-0.8); Monocytes % (Auto) 4.9 % (0.0-7.3); Platelet Count 235 K/mm3 (140-440); Red Cell Distribution Width 15.2 % (13.2-15.2)
[2020-04-30 18:44] LABS: Alanine Aminotransferase 12 units/L (7-56); Albumin 4.1 g/dL (3.9-5); Blood Urea Nitrogen 9 mg/dL (7-17); Calcium 8.7 mg/dL (8.4-10.2); Hemolysis Index 11
[2020-04-30 19:02] LABS: BUN/Creatinine Ratio 15
[2020-04-30 20:00] VITALS: BP 149/93
== END 2020-04-30 20:00 | disposition home or self-care (01) ==
LOC: ED 15:53
DX: N93.9 Abnormal uterine and vaginal bleeding, unspecified (principal); I10 Essential (primary) hypertension; E11.9 Type 2 diabetes mellitus without complications; J45.909 Unspecified asthma, uncomplicated; Z98.890 Other specified postprocedural states; Z79.899 Other long term (current) drug therapy
CPT/HCPCS: 36415; 80053; 81001; 84702; 85025

== ENCOUNTER 2020-06-12 18:06 | Emergency (ER) | payer SELFPAY ==
[2020-06-12 18:19] VITALS: BP 178/100
--- NOTE | 2020-06-12 18:28 | Emergency Department Report ---
Blank Doc - Documentation Documentation: 40year-old female but that presents with chest pain with shortness of breath. 1- This initial assessment/diagnostic orders/clinical plan/ treatment(s) is/are subject to change based on pt's health status, clinical progression and re- assessment by fellow clinical providers in the ED. Further treatment and workup at subsequent clinical provers discretion. Patient/guardians urged not to elope from ED as their condition may be serious if not clinically assessed and managed. 2-cardiac workup
[2020-06-12 18:45] LABS: Basophils # (Auto) 0.1 K/mm3 (0.0-0.1); Eosinophils # (Auto) 0.5 K/mm3 (0.0-0.4); Eosinophils % (Auto) 5.9 % (0.0-4.3); Hematocrit 34.8 % (30.3-42.9); Hemoglobin 11.1 gm/dl (10.1-14.3); Lymphocytes # (Auto) 3.2 K/mm3 (1.2-5.4); Mean Corpuscular HGB Conc 32 % (30-34); Mean Corpuscular Volume 74 fl (79-97); Monocytes # (Auto) 0.4 K/mm3 (0.0-0.8); Monocytes % (Auto) 4.7 % (0.0-7.3); Platelet Count 221 K/mm3 (140-440); Red Blood Count 4.72 M/mm3 (3.65-5.03); Red Cell Distribution Width 15.8 % (13.2-15.2)
[2020-06-12 18:57] LABS: INR 0.98 (0.87-1.13)
[2020-06-12 18:58] LABS: Partial Thromboplastin Time 29.6 Sec. (24.2-36.6)
[2020-06-12 19:08] LABS: Alanine Aminotransferase 7 units/L (7-56); BUN/Creatinine Ratio 19; Blood Urea Nitrogen 15 mg/dL (7-17); Calcium 8.4 mg/dL (8.4-10.2); Hemolysis Index 2
--- NOTE | 2020-06-12 20:50 | XRay Report ---
CHEST 2 VIEWS 2020 INDICATION / CLINICAL INFORMATION: Chest Pain COMPARISON: None available. FINDINGS: SUPPORT DEVICES: None. HEART / MEDIASTINUM: No significant abnormality. LUNGS / PLEURA: No significant pulmonary or pleural abnormality. No pneumothorax. ADDITIONAL FINDINGS: No significant additional findings. IMPRESSION: No significant acute abnormality Signer Name: William Danielle MD Signed: 06/12/2020 8:46 PM Workstation Name: [id number]
--- NOTE | 2020-06-12 21:00 | Emergency Department Report ---
ED Chest Pain HPI - General Chief Complaint: Chest Pain Stated Complaint: CHEST PAIN,WHEEZING,SORETHROAT PUI?: Yes Time Seen by Provider: 06/12/20 20:26 Source: patient Mode of arrival: Ambulatory Limitations: No Limitations - History of Present Illness Initial Comments: Patient is a 40-year-old female that presents emergency room with complaints of chest pain, shortness of breath, throat pain, cough and wheezing. Patient sta danielle her symptoms been going on for 3 days. Patient dates her symptoms are worsening. Patient denies nausea vomiting. Patient denies diaphoresis. Patient denies fever and chills. Patient denies diarrhea. Patient denies loss of smell. Patient denies loss of taste. Patient states that her chest pain is an 8 out of 10. Patient states the pain is better with rest. Patient states that the pain is worse with movement and deep breath and inspiration. Patient states she has a history of asthma and has been wheezing. Patient states her wheezing and shortness of breath are better with rest and worse with exertion. Patient denies recent travel. Patient denies recent international travel. Patient denies exposure to the novel coronavirus. Patient denies sick contacts. Patient denies fever and chills. Denies nausea/vomiting. Patient denies diarrhea. Patient denies coming in contact with anybody with symptoms of the novel coronavirus. MD Complaint: chest pain -: Sudden Onset: during rest Pain Location: substernal, left chest, right chest Pain Radiation: none Severity: severe Severity scale (0 -10): 8 Quality: sharp Consistency: constant Improves With: rest Worsens With: inspiration, palpation, movement Context: recent illness re: dyspnea. denies: nausea, vomting, diaphoresis, sense of impending doom Other Symptoms: cough - Related Data Home Medications Medication Instructions Recorded Confirmed Last Taken NIFEdipine [NIFEdipine XL] 30 mg PO QDAY 08/10/13 08/10/13 08/09/13 09:00 Previous Rx's Medication Instructions Recorded Last Taken Type Ferrous Sulfate [Feosol 325 MG tab] 325 mg PO BID #60 tablet 04/21/13 08/09/13 09:00 Rx Ibuprofen [Motrin 800 MG tab] 800 mg PO Q6H PRN #30 tablet 04/21/13 08/10/13 09:00 Rx oxyCODONE /ACETAMINOPHEN [Percocet 1 - 2 tab PO Q4H PRN #30 tablet 04/21/13 04/28/13 Rx 5/325 mg] Ibuprofen [Motrin] 800 mg PO Q8HR PRN #30 tablet 03/14/17 Unknown Rx Cyclobenzaprine [Flexeril] 10 mg PO TID PRN #30 tablet 04/14/17 Unknown Rx Naproxen [Naprosyn] 500 mg PO BID PRN #30 tablet 07/12/17 Unknown Rx Meclizine [Antivert] 12.5 mg PO BID PRN #10 tablet 02/20/19 Unknown Rx Amoxicillin/Potassium Clav 1 each PO BID 10 Days #20 tablet 03/01/19 Unknown Rx [Augmentin 875-125 Tablet] Ibuprofen [Motrin 800 MG tab] 800 mg PO Q8HR PRN #30 tablet 03/01/19 Unknown Rx diphenhydrAMINE [Benadryl CAP] 25 mg PO Q8HR PRN #30 capsule 03/01/19 Unknown Rx predniSONE [Deltasone] 40 mg PO QDAY 5 Days #10 tab 03/01/19 Unknown Rx Ondansetron [Zofran ODT TAB] 8 mg PO Q12HR #20 tab.rapdis 12/04/19 Unknown Rx amLODIPine 5 mg PO DAILY #30 tab 04/30/20 Unknown Rx medroxyPROGESTERone ACETATE 10 mg PO QDAY 10 Days #10 tablet 04/30/20 Unknown Rx [Provera] Albuterol Mdi (or & Nicu Only) 2 puff IH QID PRN #8.5 gram 06/12/20 Unknown Rx [ProAir HFA Inhaler] Azithromycin [Zithromax TAB] 500 mg PO QDAY 5 Days #5 tablet 06/12/20 Unknown Rx methylPREDNISolone [Medrol 4MG 4 mg PO DAILY 6 Days #1 tab.ds.pk 06/12/20 Unknown Rx DOSEPAK (21 tabs)] Allergies Allergy/AdvReac Type Severity Reaction Status Date / Time No Known Allergies Allergy Verified 06/12/20 18:14 Heart Score - HEART Score History: Slightly suspicious EKG: Normal Age: < 45 Risk factors: No known risk factors Troponin: < normal limit HEART Score: 0 ED Review of Systems ROS: Stated complaint: CHEST PAIN,WHEEZING,SORETHROAT Other details as noted in HPI Constitutional: denies: chills, fever Eyes: denies: eye pain, eye discharge, vision change ENT: as per HPI, throat pain, congestion. denies: ear pain Respiratory: see HPI, cough, shortness of breath. denies: wheezing Cardiovascular: as per HPI, chest pain. denies: palpitations Endocrine: no symptoms reported Gastrointestinal: denies: abdominal pain, nausea, diarrhea Genitourinary: denies: urgency, dysuria, discharge Musculoskeletal: denies: back pain, joint swelling, arthralgia Skin: denies: rash, lesions Neurological: denies: headache, weakness, paresthesias Psychiatric: denies: anxiety, depression Hematological/Lymphatic: denies: easy bleeding, easy bruising ED Past Medical Hx - Past Medical History Previous Medical History?: Yes Hx Hypertension: Yes Hx Congestive Heart Failure: No Hx Diabetes: Yes (gestational) Hx Deep Vein Thrombosis: No Hx Renal Disease: No Hx Sickle Cell Disease: No Hx Seizures: No Hx Asthma: Yes Hx COPD: No Hx HIV: No Additional medical history: hx of gestational diabetes - Surgical History Past Surgical History?: Yes Additional Surgical History: 04/21/13, hernia repair when 5 yrs old - Family History Family history: no significant - Social History Smoking Status: Never Smoker Substance Use Type: None - Medications Home Medications: Home Medications Medication Instructions Recorded Confirmed Last Taken Type Ferrous Sulfate [Feosol 325 MG tab] 325 mg PO BID #60 tablet 04/21/13 08/10/13 08/09/13 09:00 Rx Ibuprofen [Motrin 800 MG tab] 800 mg PO Q6H PRN #30 tablet 04/21/13 08/10/13 08/10/13 09:00 Rx oxyCODONE /ACETAMINOPHEN [Percocet 1 - 2 tab PO Q4H PRN #30 tablet 04/21/13 08/10/13 04/28/13 Rx 5/325 mg] NIFEdipine [NIFEdipine XL] 30 mg PO QDAY 08/10/13 08/10/13 08/09/13 09:00 History Ibuprofen [Motrin] 800 mg PO Q8HR PRN #30 tablet 03/14/17 Unknown Rx Cyclobenzaprine [Flexeril] 10 mg PO TID PRN #30 tablet 04/14/17 Unknown Rx Naproxen [Naprosyn] 500 mg PO BID PRN #30 tablet 07/12/17 Unknown Rx Meclizine [Antivert] 12.5 mg PO BID PRN #10 tablet 02/20/19 Unknown Rx Amoxicillin/Potassium Clav 1 each PO BID 10 Days #20 tablet 03/01/19 Unknown Rx [Augmentin 875-125 Tablet] Ibuprofen [Motrin 800 MG tab] 800 mg PO Q8HR PRN #30 tablet 03/01/19 Unknown Rx diphenhydrAMINE [Benadryl CAP] 25 mg PO Q8HR PRN #30 capsule 03/01/19 Unknown Rx predniSONE [Deltasone] 40 mg PO QDAY 5 Days #10 tab 03/01/19 Unknown Rx Ondansetron [Zofran ODT TAB] 8 mg PO Q12HR #20 tab.rapdis 12/04/19 Unknown Rx amLODIPine 5 mg PO DAILY #30 tab 04/30/20 Unknown Rx medroxyPROGESTERone ACETATE 10 mg PO QDAY 10 Days #10 tablet 04/30/20 Unknown Rx [Provera] Albuterol Mdi (or & Nicu Only) 2 puff IH QID PRN #8.5 gram 06/12/20 Unknown Rx [ProAir HFA Inhaler] Azithromycin [Zithromax TAB] 500 mg PO QDAY 5 Days #5 tablet 06/12/20 Unknown Rx methylPREDNISolone [Medrol 4MG 4 mg PO DAILY 6 Days #1 tab.ds.pk 06/12/20 Unknown Rx DOSEPAK (21 tabs)] ED Physical Exam - General Limitations: No Limitations General appearance: alert, in no apparent distress - Head Head exam: Present: atraumatic, normocephalic - Eye Eye exam: Present: normal appearance - ENT ENT exam: Present: mucous membranes moist - Neck Neck exam: Present: normal inspection, full ROM. Absent: tenderness, meningismus - Respiratory Respiratory exam: Present: wheezes. Absent: respiratory distress, rales - Cardiovascular Cardiovascular Exam: Present: regular rate, normal rhythm. Absent: systolic murmur, diastolic murmur, rubs, gallop - GI/Abdominal GI/Abdominal exam: Present: soft, normal bowel sounds - Extremities Exam Extremities exam: Present: normal inspection - Back Exam Back exam: Present: normal inspection - Neurological Exam Neurological exam: Present: alert, oriented X3 - Psychiatric Psychiatric exam: Present: normal affect, normal mood - Skin Skin exam: Present: warm, dry, intact, normal color. Absent: rash ED Course Vital Signs 06/12/20 18:16 Temperature 98.6 F Pulse Rate 93 H Respiratory 20 Rate Blood Pressure 178/100 O2 Sat by Pulse 99 Oximetry - Reevaluation(s) Reevaluation #1: Patient states she is feeling much better. Patient states her shortness of breath has resolved. Patient states her chest pain has resolved. I discussed all results and clinical findings with patient. I discussed plan of care with patient. Patient agrees with plan of care. Patient is stable for discharge. Patient will be discharged home. Patient given discharge instructions. Patient voiced understanding of discharge instructions. 06/12/20 23:25 NEO score - Neo Score Age > 65: (0) No Aspirin use within the Past 7 Days: (0) No 3 or more CAD Risk Factors: (0) No 2 or more Angina events in past 24 hrs: (0) No Known CAD with more than 50% Stenosis: (0) No Elevated Cardiac Markers: (0) No ST Deviation Greater than 0.5mm: (0) No NEO Score: 0 ED Medical Decision Making - Lab Data Result diagrams: 06/12/20 18:34 06/12/20 18:34 - EKG Data -: EKG Interpreted by Me EKG shows normal: sinus rhythm, axis, intervals, QRS complexes, ST-T waves Rate: normal - Radiology Data Radiology results: report reviewed, image reviewed interpreted by me: Chest x-ray: No pneumonia, no pneumothorax, no foreign body, no osseous findings, no acute findings CHEST 2 VIEWS 2020 INDICATION / CLINICAL INFORMATION: Chest Pain COMPARISON: None available. FINDINGS: SUPPORT DEVICES: None. HEART / MEDIASTINUM: No significant abnormality. LUNGS / PLEURA: No significant pulmonary or pleural abnormality. No pneumothorax. ADDITIONAL FINDINGS: No significant additional findings. IMPRESSION: No significant acute abnormality - Medical Decision Making Patient is a 40-year-old female that presents emergency room with complaints of chest pain, cough, shortness of breath, throat pain and wheezing. Patient hi story of asthma. Patient worsening. Patient had labs done which were essentially unremarkable. Patient had cardiac work-up which revealed a negative troponin, normal EKG and normal chest x-ray. Patient requires oxygen with asthma exacerbation and upper respiratory infection. There is a clinical concern for COVID-19. I recommended the patient the CDC guidelines for Covid and also have appropriate Covid testing as an outpatient. Patient given steroids and antibiotics. Patient also given a DuoNeb. Patient responded well to treatment. Patient's lung sounds are clear after the treatment. Patient symptoms are essentially resolved with treatment. Patient denies any further chest pain. Patient shortness of breath resolved. Patient stable for discharge. Patient discharged home. Patient given discharge instructions. - Differential Diagnosis Chest pain, URI, Covid, PUI, bronchitis, asthma exacerbation Critical care attestation.: If time is entered above; I have spent that time in minutes in the direct care of this critically ill patient, excluding procedure time. ED Disposition Clinical Impression: Cough, Bronchitis, Person under investigation for COVID-19, Shortness of breath Asthma exacerbation Qualifiers: Asthma severity: unspecified severity Asthma persistence: unspecified Qualified Code(s): J45.901 - Unspecified asthma with (acute) exacerbation Chest pain Qualifiers: Chest pain type: unspecified Qualified Code(s): R07.9 - Chest pain, unspecified Disposition: DC-01 TO HOME OR SELFCARE Is pt being admited?: No Does the pt Need Aspirin: No Condition: Stable Instructions: Chronic Bronchitis (ED), Chest Pain (ED), Asthma, Adult, Nonspecific Chest Pain, Adult, [id number], Cough, Adult, [id number]-[id number], Chest Wall Pain, [id number], Asthma Attack Prevention, Adult, COVID-19 Frequently Asked Questions, COVID-19, Prevent the Spread of COVID-19 if You Are Sick - [facility] [place] Additional Instructions: Patient to follow-up with primary care in 2 to 3 days. Patient to follow-up with outpatient Covid testing and health department in 2 to 3 days. Follow CDC guidelines for Covid. Patient to rest. Patient to increase water. Patient to self quarantine for 10 to 14 days. Patient to take Tylenol or ibuprofen as needed for pain. Patient to take meds as directed. Patient to return to the ER if condition worsens, changes or new symptoms arise. Prescriptions: methylPREDNISolone [Medrol 4MG DOSEPAK (21 tabs)] 4 mg PO DAILY 6 Days #1 tab.ds.pk Albuterol Mdi (or & Nicu Only) [ProAir HFA Inhaler] 2 puff IH QID PRN #8.5 gram PRN Reason: Shortness Of Breath Azithromycin [Zithromax TAB] 500 mg PO QDAY 5 Days #5 tablet Referrals: PRIMARY CARE, [Primary Care Provider] - 2-3 Days Time of Disposition: 23:22
[2020-06-12] MEDS ORDERED: IPRATROPIUM/ALBUTEROL SULFATE 3 ML AMPUL.NEB IH ONE (21:49)
[2020-06-12] MEDS ORDERED: dexAMETHasone 4 MG/ML VIAL IV ONE (21:49)
[2020-06-12] MEDS ORDERED: AZITHROMYCIN/NS 500 MG/250 ML 500 MG/250 ML BAG IV ONE (21:49)
[2020-06-12] MEDS ORDERED: cefTRIAXone/NS 2 GM/100 ML 2 GM/100 ML BAG IV ONE (21:49)
== END 2020-06-13 00:20 | disposition home or self-care (01) ==
LOC: ED 18:06
DX: J45.901 Unspecified asthma with (acute) exacerbation (principal); Z20.822 Contact with and (suspected) exposure to COVID-19; R07.89 Other chest pain; R06.02 Shortness of breath; R05 Cough; I10 Essential (primary) hypertension; E11.9 Type 2 diabetes mellitus without complications; Z98.890 Other specified postprocedural states; Z79.1 Long term (current) use of non-steroidal anti-inflammatories (NSAID); Z79.2 Long term (current) use of antibiotics; Z79.899 Other long term (current) drug therapy
CPT/HCPCS: 36415; 71046; 80053; 84484; 84703; 85025; 85610; 85730; 93005; 94640; 96365; 96368; 96375; 99284; J0456; J0696; J1100

== ENCOUNTER 2020-08-15 09:33 | Emergency (ER) | payer OTHER, SELFPAY ==
[2020-08-15 10:41] VITALS: BP 157/93
--- NOTE | 2020-08-15 12:07 | Emergency Department Report ---
ED General Adult HPI - General Chief complaint: Extremity Problem,Nontraumatic Stated complaint: ROCK HANDS SWOLLEN/ALLERGIC REACTION Time Seen by Provider: 08/15/20 11:53 Source: patient Mode of arrival: Ambulatory Limitations: No Limitations - History of Present Illness Initial comments: 40-year-old -[place]ir[place] female patient presents with complaints of bilateral hand swelling and itchiness x3 days. She also reports a small rash. She denies any pain, difficulty moving her hands, numbness/tingling/weakness in her hands, or injury to the hands. Patient is unsure of what she could have had allergic reaction to and denies any changes in her products or foods. No recent stays in hotel rooms per patient. History of hypertension - Related Data Home Medications Medication Instructions Recorded Confirmed Last Taken NIFEdipine [NIFEdipine XL] 30 mg PO QDAY 08/10/13 08/10/13 08/09/13 09:00 Previous Rx's Medication Instructions Recorded Last Taken Type Ferrous Sulfate [Feosol 325 MG tab] 325 mg PO BID #60 tablet 04/21/13 08/09/13 09:00 Rx Ibuprofen [Motrin 800 MG tab] 800 mg PO Q6H PRN #30 tablet 04/21/13 08/10/13 09:00 Rx oxyCODONE /ACETAMINOPHEN [Percocet 1 - 2 tab PO Q4H PRN #30 tablet 04/21/13 04/28/13 Rx 5/325 mg] Ibuprofen [Motrin] 800 mg PO Q8HR PRN #30 tablet 03/14/17 Unknown Rx Cyclobenzaprine [Flexeril] 10 mg PO TID PRN #30 tablet 04/14/17 Unknown Rx Naproxen [Naprosyn] 500 mg PO BID PRN #30 tablet 07/12/17 Unknown Rx Meclizine [Antivert] 12.5 mg PO BID PRN #10 tablet 02/20/19 Unknown Rx Amoxicillin/Potassium Clav 1 each PO BID 10 Days #20 tablet 03/01/19 Unknown Rx [Augmentin 875-125 Tablet] Ibuprofen [Motrin 800 MG tab] 800 mg PO Q8HR PRN #30 tablet 03/01/19 Unknown Rx diphenhydrAMINE [Benadryl CAP] 25 mg PO Q8HR PRN #30 capsule 03/01/19 Unknown Rx predniSONE [Deltasone] 40 mg PO QDAY 5 Days #10 tab 03/01/19 Unknown Rx Ondansetron [Zofran ODT TAB] 8 mg PO Q12HR #20 tab.rapdis 12/04/19 Unknown Rx amLODIPine 5 mg PO DAILY #30 tab 04/30/20 Unknown Rx medroxyPROGESTERone ACETATE 10 mg PO QDAY 10 Days #10 tablet 04/30/20 Unknown Rx [Provera] Albuterol Mdi (or & Nicu Only) 2 puff IH QID PRN #8.5 gram 06/12/20 Unknown Rx [ProAir HFA Inhaler] Azithromycin [Zithromax TAB] 500 mg PO QDAY 5 Days #5 tablet 06/12/20 Unknown Rx methylPREDNISolone [Medrol 4MG 4 mg PO DAILY 6 Days #1 tab.ds.pk 06/12/20 Unknown Rx DOSEPAK (21 tabs)] Loratadine [Alavert] 10 mg PO QDAY PRN #10 tab.rapdis 08/15/20 Unknown Rx Permethrin 5% [Acticin 5% CREAM] 1 applicatio TP ONCE 1 Days #1 tube 08/15/20 Unknown Rx Prednisone [predniSONE 10 mg 10 mg PO .TAPER #1 tab.ds.pk 08/15/20 Unknown Rx (6-Day Pack, 21 Tabs)] Triamcinolone Acetonide 15 gm TP TID PRN 7 Days #1 08/15/20 Unknown Rx oint...g. Allergies Allergy/AdvReac Type Severity Reaction Status Date / Time No Known Allergies Allergy Verified 06/12/20 18:14 ED Review of Systems ROS: Stated complaint: ROCK HANDS SWOLLEN/ALLERGIC REACTION Other details as noted in HPI Constitutional: denies: fever, malaise Cardiovascular: denies: chest pain Gastrointestinal: denies: abdominal pain Musculoskeletal: denies: arthralgia Skin: rash. denies: change in color Hematological/Lymphatic: denies: swollen glands ED Past Medical Hx - Past Medical History Previous Medical History?: Yes Hx Hypertension: Yes Hx Congestive Heart Failure: No Hx Diabetes: Yes (gestational) Hx Deep Vein Thrombosis: No Hx Renal Disease: No Hx Sickle Cell Disease: No Hx Seizures: No Hx Asthma: Yes Hx COPD: No Hx HIV: No Additional medical history: hx of gestational diabetes - Surgical History Past Surgical History?: Yes Additional Surgical History: 04/21/13, hernia repair when 5 yrs old - Social History Smoking Status: Never Smoker Substance Use Type: None - Medications Home Medications: Home Medications Medication Instructions Recorded Confirmed Last Taken Type Ferrous Sulfate [Feosol 325 MG tab] 325 mg PO BID #60 tablet 04/21/13 08/10/13 08/09/13 09:00 Rx Ibuprofen [Motrin 800 MG tab] 800 mg PO Q6H PRN #30 tablet 04/21/13 08/10/13 08/10/13 09:00 Rx oxyCODONE /ACETAMINOPHEN [Percocet 1 - 2 tab PO Q4H PRN #30 tablet 04/21/13 08/10/13 04/28/13 Rx 5/325 mg] NIFEdipine [NIFEdipine XL] 30 mg PO QDAY 08/10/13 08/10/13 08/09/13 09:00 History Ibuprofen [Motrin] 800 mg PO Q8HR PRN #30 tablet 03/14/17 Unknown Rx Cyclobenzaprine [Flexeril] 10 mg PO TID PRN #30 tablet 04/14/17 Unknown Rx Naproxen [Naprosyn] 500 mg PO BID PRN #30 tablet 07/12/17 Unknown Rx Meclizine [Antivert] 12.5 mg PO BID PRN #10 tablet 02/20/19 Unknown Rx Amoxicillin/Potassium Clav 1 each PO BID 10 Days #20 tablet 03/01/19 Unknown Rx [Augmentin 875-125 Tablet] Ibuprofen [Motrin 800 MG tab] 800 mg PO Q8HR PRN #30 tablet 03/01/19 Unknown Rx diphenhydrAMINE [Benadryl CAP] 25 mg PO Q8HR PRN #30 capsule 03/01/19 Unknown Rx predniSONE [Deltasone] 40 mg PO QDAY 5 Days #10 tab 03/01/19 Unknown Rx Ondansetron [Zofran ODT TAB] 8 mg PO Q12HR #20 tab.rapdis 12/04/19 Unknown Rx amLODIPine 5 mg PO DAILY #30 tab 04/30/20 Unknown Rx medroxyPROGESTERone ACETATE 10 mg PO QDAY 10 Days #10 tablet 04/30/20 Unknown Rx [Provera] Albuterol Mdi (or & Nicu Only) 2 puff IH QID PRN #8.5 gram 06/12/20 Unknown Rx [ProAir HFA Inhaler] Azithromycin [Zithromax TAB] 500 mg PO QDAY 5 Days #5 tablet 06/12/20 Unknown Rx methylPREDNISolone [Medrol 4MG 4 mg PO DAILY 6 Days #1 tab.ds.pk 06/12/20 Unknown Rx DOSEPAK (21 tabs)] Loratadine [Alavert] 10 mg PO QDAY PRN #10 tab.rapdis 08/15/20 Unknown Rx Permethrin 5% [Acticin 5% CREAM] 1 applicatio TP ONCE 1 Days #1 tube 08/15/20 Unknown Rx Prednisone [predniSONE 10 mg 10 mg PO .TAPER #1 tab.ds.pk 08/15/20 Unknown Rx (6-Day Pack, 21 Tabs)] Triamcinolone Acetonide 15 gm TP TID PRN 7 Days #1 08/15/20 Unknown Rx oint...g. ED Physical Exam - General Limitations: No Limitations General appearance: alert, in no apparent distress, obese - Head Head exam: Present: atraumatic, normocephalic - Eye Eye exam: Present: normal appearance. Absent: scleral icterus - Respiratory Respiratory exam: Absent: respiratory distress - Cardiovascular Cardiovascular Exam: Present: regular rate, normal rhythm. Absent: systolic murmur, diastolic murmur, rubs, gallop - Neurological Exam Neurological exam: Present: alert, oriented X3 - Psychiatric Psychiatric exam: Present: normal affect, normal mood - Skin Skin exam: Present: warm, dry, intact, normal color, rash (A few small scattered papules noted to left hand and forearm, with 2 of the papular is being in a linear pattern; no significant swelling of the hands is noted; normal capillary refill and range of motion of the hands and fingers noted bilaterally) ED Course Vital Signs 08/15/20 10:38 Temperature 97.7 F Pulse Rate 97 H Respiratory 15 Rate Blood Pressure 157/93 O2 Sat by Pulse 100 Oximetry ED Medical Decision Making - Medical Decision Making 40-year-old -[place] female patient presents with complaints of bilateral hand swelling and itchiness x3 days. She also reports a small rash. She denies any pain, difficulty moving her hands, numbness/tingling/weakness in her hands, or injury to the hands. Patient is unsure of what she could have had allergic reaction to and denies any changes in her products or foods. No recent stays in hotel rooms per patient. History of hypertension On exam, no appreciable swelling of the hands is noted. Contact dermatitis versus scabies. Patient given treatment for both and informed to follow-up with her primary care doctor in 3 days. Discussed signs and symptoms that should prompt immediate return to the emergency department in detail with patient who verbalizes understanding. She is well-appearing, her vitals are within normal limits, she is stable for discharge home. Critical care attestation.: If time is entered above; I have spent that time in minutes in the direct care of this critically ill patient, excluding procedure time. ED Disposition Clinical Impression: Rash of hands Disposition: - TO HOME OR SELFCARE Is pt being admited?: No Condition: Stable Instructions: Contact Dermatitis, Scabies, Adult Prescriptions: Permethrin 5% [Acticin 5% CREAM] 1 applicatio TP ONCE 1 Days #1 tube Loratadine [Alavert] 10 mg PO QDAY PRN #10 tab.rapdis PRN Reason: Itching Prednisone [predniSONE 10 mg (6-Day Pack, 21 Tabs)] 10 mg PO .TAPER #1 tab.ds.pk Triamcinolone Acetonide 15 gm TP TID PRN 7 Days #1 oint...g. PRN Reason: Itching Referrals: PRIMARY CARE, [Primary Care Provider] - 3-5 Days Forms: Work/School Release Form(ED)
== END 2020-08-15 12:42 | disposition home or self-care (01) ==
LOC: ED 09:33
DX: R21 Rash and other nonspecific skin eruption (principal); I10 Essential (primary) hypertension; E11.9 Type 2 diabetes mellitus without complications; J45.909 Unspecified asthma, uncomplicated; Z98.890 Other specified postprocedural states; Z79.1 Long term (current) use of non-steroidal anti-inflammatories (NSAID); Z79.2 Long term (current) use of antibiotics; Z79.899 Other long term (current) drug therapy
CPT/HCPCS: 99281

== ENCOUNTER 2020-08-21 15:33 | Emergency (ER) | payer OTHER ==
[2020-08-21 16:16] VITALS: BP 154/82
--- NOTE | 2020-08-21 17:53 | XRay Report ---
CHEST PA AND LATERAL VIEWS INDICATION: cough. COMPARISON: 06/02/2020 FINDINGS: Support devices: None Heart: Normal and unchanged Lungs/Pleura: No acute pulmonary or pleural findings. IMPRESSION: 1. No acute disease and no interval change. Signer Name: Armando Bird MD Signed: 08/21/2020 5:49 PM Workstation Name: [id number]
--- NOTE | 2020-08-21 18:23 | Emergency Department Report ---
- General Chief Complaint: Chest Pain Stated Complaint: SOB/THROAT HURT WHEN SWOLLING Time Seen by Provider: 08/21/20 16:48 Source: patient Mode of arrival: Ambulatory Limitations: No Limitations - History of Present Illness Initial Comments: This is a 40-year-old female nontoxic, well nourished in appearance, no acute signs of distress presents to the ED with c/o of productive cough, itchy throat, body aches, rhinorrhea, nasal congestion x several days. Stated had some wheezing with SOB this morning but taken her inhaler albuterol treatment which symptoms of shortness of breath and wheezing has resolved. Patient describes productive cough as yellow mucus production. Patient denies any sick contact. Patient denies any recent travels, long car, recent hospital stays. Patient denies any calf pain or calf tenderness. Patient denies any chest pain, short of breath, fever, chills, nausea, vomiting, hemoptysis, numbness, tingling, headache or stiff neck. MD Complaint: cough, rhinorrhea, nasal congestion -: days(s) Severity: mild Severity scale (0 -10): 0 Consistency: constant Improves With: nothing Worsens With: nothing Associated Symptoms: rhinorrhea, nasal congestion, cough. denies: fever, chills, myalgias, diaphoresis, headache, sore throat, stiff neck, chest pain, shortness of breath, abdominal pain, nausea, vomiting, diarrhea, dysuria, rash, confusion, right sweats, weight loss, epistaxis, hoarseness, ear pain Treatments Prior to Arrival: none - Related Data Home Medications Medication Instructions Recorded Confirmed Last Taken NIFEdipine [NIFEdipine XL] 30 mg PO QDAY 08/10/13 08/10/13 08/09/13 09:00 Previous Rx's Medication Instructions Recorded Last Taken Type Ferrous Sulfate [Feosol 325 MG tab] 325 mg PO BID #60 tablet 04/21/13 08/09/13 09:00 Rx Ibuprofen [Motrin 800 MG tab] 800 mg PO Q6H PRN #30 tablet 04/21/13 08/10/13 09:00 Rx oxyCODONE /ACETAMINOPHEN [Percocet 1 - 2 tab PO Q4H PRN #30 tablet 04/21/13 04/28/13 Rx 5/325 mg] Ibuprofen [Motrin] 800 mg PO Q8HR PRN #30 tablet 03/14/17 Unknown Rx Cyclobenzaprine [Flexeril] 10 mg PO TID PRN #30 tablet 04/14/17 Unknown Rx Naproxen [Naprosyn] 500 mg PO BID PRN #30 tablet 07/12/17 Unknown Rx Meclizine [Antivert] 12.5 mg PO BID PRN #10 tablet 02/20/19 Unknown Rx Amoxicillin/Potassium Clav 1 each PO BID 10 Days #20 tablet 03/01/19 Unknown Rx [Augmentin 875-125 Tablet] Ibuprofen [Motrin 800 MG tab] 800 mg PO Q8HR PRN #30 tablet 03/01/19 Unknown Rx diphenhydrAMINE [Benadryl CAP] 25 mg PO Q8HR PRN #30 capsule 03/01/19 Unknown Rx predniSONE [Deltasone] 40 mg PO QDAY 5 Days #10 tab 03/01/19 Unknown Rx Ondansetron [Zofran ODT TAB] 8 mg PO Q12HR #20 tab.rapdis 12/04/19 Unknown Rx amLODIPine 5 mg PO DAILY #30 tab 04/30/20 Unknown Rx medroxyPROGESTERone ACETATE 10 mg PO QDAY 10 Days #10 tablet 04/30/20 Unknown Rx [Provera] Albuterol Mdi (or & Nicu Only) 2 puff IH QID PRN #8.5 gram 06/12/20 Unknown Rx [ProAir HFA Inhaler] Azithromycin [Zithromax TAB] 500 mg PO QDAY 5 Days #5 tablet 06/12/20 Unknown Rx methylPREDNISolone [Medrol 4MG 4 mg PO DAILY 6 Days #1 tab.ds.pk 06/12/20 Unknown Rx DOSEPAK (21 tabs)] Loratadine [Alavert] 10 mg PO QDAY PRN #10 tab.rapdis 08/15/20 Unknown Rx Permethrin 5% [Acticin 5% CREAM] 1 applicatio TP ONCE 1 Days #1 tube 08/15/20 Unknown Rx Prednisone [predniSONE 10 mg 10 mg PO .TAPER #1 tab.ds.pk 08/15/20 Unknown Rx (6-Day Pack, 21 Tabs)] Triamcinolone Acetonide 15 gm TP TID PRN 7 Days #1 08/15/20 Unknown Rx oint...g. Benzonatate [Tessalon Perles] 100 mg PO Q8HR PRN #12 capsule 08/21/20 Unknown Rx Allergies Allergy/AdvReac Type Severity Reaction Status Date / Time No Known Allergies Allergy Verified 08/21/20 16:10 ED Review of Systems ROS: Stated complaint: SOB/THROAT HURT WHEN SWOLLING Other details as noted in HPI Comment: All other systems reviewed and negative Constitutional: denies: chills, fever Eyes: denies: eye pain, eye discharge, vision change ENT: congestion. denies: ear pain, throat pain Respiratory: cough. denies: shortness of breath, wheezing Cardiovascular: denies: chest pain, palpitations Endocrine: no symptoms reported Gastrointestinal: denies: abdominal pain, nausea, diarrhea Genitourinary: denies: urgency, dysuria, discharge Musculoskeletal: denies: back pain, joint swelling, arthralgia Skin: denies: rash, lesions Neurological: denies: headache, weakness, paresthesias Psychiatric: denies: anxiety, depression Hematological/Lymphatic: denies: easy bleeding, easy bruising ED Past Medical Hx - Past Medical History Hx Hypertension: Yes Hx Congestive Heart Failure: No Hx Diabetes: Yes (gestational) Hx Deep Vein Thrombosis: No Hx Renal Disease: No Hx Sickle Cell Disease: No Hx Seizures: No Hx Asthma: Yes Hx COPD: No Hx HIV: No Additional medical history: hx of gestational diabetes - Surgical History Additional Surgical History: 04/21/13, hernia repair when 5 yrs old - Social History Smoking Status: Never Smoker Substance Use Type: None - Medications Home Medications: Home Medications Medication Instructions Recorded Confirmed Last Taken Type Ferrous Sulfate [Feosol 325 MG tab] 325 mg PO BID #60 tablet 04/21/13 08/10/13 08/09/13 09:00 Rx Ibuprofen [Motrin 800 MG tab] 800 mg PO Q6H PRN #30 tablet 04/21/13 08/10/13 08/10/13 09:00 Rx oxyCODONE /ACETAMINOPHEN [Percocet 1 - 2 tab PO Q4H PRN #30 tablet 04/21/13 08/10/13 04/28/13 Rx 5/325 mg] NIFEdipine [NIFEdipine XL] 30 mg PO QDAY 08/10/13 08/10/13 08/09/13 09:00 History Ibuprofen [Motrin] 800 mg PO Q8HR PRN #30 tablet 03/14/17 Unknown Rx Cyclobenzaprine [Flexeril] 10 mg PO TID PRN #30 tablet 04/14/17 Unknown Rx Naproxen [Naprosyn] 500 mg PO BID PRN #30 tablet 07/12/17 Unknown Rx Meclizine [Antivert] 12.5 mg PO BID PRN #10 tablet 02/20/19 Unknown Rx Amoxicillin/Potassium Clav 1 each PO BID 10 Days #20 tablet 03/01/19 Unknown Rx [Augmentin 875-125 Tablet] Ibuprofen [Motrin 800 MG tab] 800 mg PO Q8HR PRN #30 tablet 03/01/19 Unknown Rx diphenhydrAMINE [Benadryl CAP] 25 mg PO Q8HR PRN #30 capsule 03/01/19 Unknown Rx predniSONE [Deltasone] 40 mg PO QDAY 5 Days #10 tab 03/01/19 Unknown Rx Ondansetron [Zofran ODT TAB] 8 mg PO Q12HR #20 tab.rapdis 12/04/19 Unknown Rx amLODIPine 5 mg PO DAILY #30 tab 04/30/20 Unknown Rx medroxyPROGESTERone ACETATE 10 mg PO QDAY 10 Days #10 tablet 04/30/20 Unknown Rx [Provera] Albuterol Mdi (or & Nicu Only) 2 puff IH QID PRN #8.5 gram 06/12/20 Unknown Rx [ProAir HFA Inhaler] Azithromycin [Zithromax TAB] 500 mg PO QDAY 5 Days #5 tablet 06/12/20 Unknown Rx methylPREDNISolone [Medrol 4MG 4 mg PO DAILY 6 Days #1 tab.ds.pk 06/12/20 Unknown Rx DOSEPAK (21 tabs)] Loratadine [Alavert] 10 mg PO QDAY PRN #10 tab.rapdis 08/15/20 Unknown Rx Permethrin 5% [Acticin 5% CREAM] 1 applicatio TP ONCE 1 Days #1 tube 08/15/20 Unknown Rx Prednisone [predniSONE 10 mg 10 mg PO .TAPER #1 tab.ds.pk 08/15/20 Unknown Rx (6-Day Pack, 21 Tabs)] Triamcinolone Acetonide 15 gm TP TID PRN 7 Days #1 08/15/20 Unknown Rx oint...g. Benzonatate [Tessalon Perles] 100 mg PO Q8HR PRN #12 capsule 08/21/20 Unknown Rx ED Physical Exam - General Limitations: No Limitations General appearance: alert, in no apparent distress - Head Head exam: Present: atraumatic, normocephalic - Eye Eye exam: Present: normal appearance, PERRL, EOMI - ENT ENT exam: Present: normal exam, normal orophraynx - Neck Neck exam: Present: normal inspection, full ROM. Absent: tenderness, meningismus, lymphadenopathy - Respiratory Respiratory exam: Present: normal lung sounds bilaterally. Absent: respiratory distress, wheezes, rales, rhonchi, stridor, chest wall tenderness, accessory muscle use, decreased breath sounds, prolonged expiratory - Cardiovascular Cardiovascular Exam: Present: regular rate, normal rhythm, normal heart sounds. Absent: bradycardia, tachycardia, irregular rhythm, systolic murmur, diastolic murmur, rubs, gallop - GI/Abdominal GI/Abdominal exam: Present: soft. Absent: distended, tenderness - Extremities Exam Extremities exam: Present: full ROM - Back Exam Back exam: Present: full ROM - Neurological Exam Neurological exam: Present: alert, oriented X3, normal gait - Psychiatric Psychiatric exam: Present: normal affect, normal mood - Skin Skin exam: Present: warm, dry, intact, normal color. Absent: rash ED Course Vital Signs 08/21/20 16:14 Temperature 98.7 F Pulse Rate 92 H Respiratory 20 Rate Blood Pressure 154/82 [Right] O2 Sat by Pulse 97 Oximetry - Reevaluation(s) Reevaluation #1: 08/21/20 18:22 Patient is speaking in full sentences with no signs of distress noted. ED Medical Decision Making - Radiology Data [facility] [address] [place] [address] XRay Report Signed Patient: SOPHIA GAONA MR#: [id number] : 1980 Acct:[id number] Age/Sex: 40 / F ADM Date: 08/21/20 Loc: ED Attending Dr: Ordering Physician: CHARLY HAMEED NP Date of Service: 08/21/20 Procedure(s): XR chest routine 2V Accession Number(s): [id number] cc: CHARLY HAMEED NP Fluoro Time In Minutes: CHEST PA AND LATERAL VIEWS INDICATION: cough. COMPARISON: 06/02/2020 FINDINGS: Support devices: None Heart: Normal and unchanged Lungs/Pleura: No acute pulmonary or pleural findings. IMPRESSION: 1. No acute disease and no interval change. Signer Name: Armando Bird MD Signed: 08/21/2020 5:49 PM Workstation Name: [id number] Transcribed By: TM Dictated By: Armando Bird MD Electronically Authenticated By: Armando Bird MD Signed Date/Time: 08/21/201748 DD/ 47 TD/TT: - Medical Decision Making This is a 40-year-old female that presents with viral bronchitis. Patient is stable and was examined by me. Chest x-ray has been obtained and dictated by radiologist with normal exam. Patient is notified of x-ray results with no questions noted. Patient does not meet clinical concerns of COVID-19 but patient was instructed and educated on signs and symptoms and to self quarantine and seek medical attention as soon as possible if symptoms does occur. Patient was instructed to increase hydration, rest and take Motrin/tylenol for fever episodes. Vitals stable. Patient is nonfebrile and normal heart rate. Patient was instructed Follow-up with a primary care doctor in 3-5 days or if symptoms worsen and continue return to emergency room as soon as possible. At time time of discharge, the patient does not seem toxic or ill in appearance. No acute signs of distress noted. Patient agrees to discharge treatment plan of care. No further questions noted by the patient.nt. Critical care attestation.: If time is entered above; I have spent that time in minutes in the direct care of this critically ill patient, excluding procedure time. ED Disposition Clinical Impression: Viral bronchitis Disposition: DC-01 TO HOME OR SELFCARE Is pt being admited?: No Does the pt Need Aspirin: No Condition: Stable Instructions: Chronic Bronchitis (ED), Acute Bronchitis, Adult, [id number] Additional Instructions: Follow-up with a primary care doctor in 3-5 days or if symptoms worsen and continue return to emergency room as soon as possible. Prescriptions: Benzonatate [Tessalon Perles] 100 mg PO Q8HR PRN #12 capsule PRN Reason: Cough Referrals: [facility] MD YOJANA [Primary Care Provider] - 3-5 Days PRIMARY CAREMD [Referring] - 3-5 Days DONTA LEON MD [Staff Physician] - 3-5 Days Forms: Work/School Release Form(ED) Time of Disposition: 18:24
--- NOTE | 2020-08-22 18:42 | Electrocardiograph Report ---
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 No previous ECG available for comparison Electronically Signed On 08-22-2020 18:42:09 EDT by Samson Barbosa
== END 2020-08-21 19:02 | disposition home or self-care (01) ==
LOC: ED 15:33
DX: J20.8 Acute bronchitis due to other specified organisms (principal); B97.89 Other viral agents as the cause of diseases classified elsewhere; I10 Essential (primary) hypertension; E11.9 Type 2 diabetes mellitus without complications; Z98.890 Other specified postprocedural states; Z79.1 Long term (current) use of non-steroidal anti-inflammatories (NSAID); Z79.2 Long term (current) use of antibiotics; Z79.899 Other long term (current) drug therapy
CPT/HCPCS: 71046; 93005

== ENCOUNTER 2020-08-23 12:30 | Emergency (ER) | payer OTHER | END 2020-08-23 14:40 | disposition left against medical advice (07) | LOC: ED 12:30 ==

== ENCOUNTER 2020-09-15 16:49 | Emergency (ER) | payer OTHER ==
[2020-09-15 17:13] VITALS: BP 153/106
[2020-09-15 17:49] LABS: Basophils # (Auto) 0.1 K/mm3 (0.0-0.1); Basophils % (Auto) 1.1 % (0.0-1.8); Eosinophils # (Auto) 0.3 K/mm3 (0.0-0.4); Eosinophils % (Auto) 4.8 % (0.0-4.3); Hematocrit 35.7 % (30.3-42.9); Hemoglobin 11.1 gm/dl (10.1-14.3); Lymphocytes # (Auto) 2.8 K/mm3 (1.2-5.4); Lymphocytes % (Auto) 44.9 % (13.4-35.0); Mean Corpuscular HGB Conc 31 % (30-34); Mean Corpuscular Volume 72 fl (79-97); Monocytes # (Auto) 0.4 K/mm3 (0.0-0.8); Platelet Count 264 K/mm3 (140-440); Red Blood Count 4.99 M/mm3 (3.65-5.03); Red Cell Distribution Width 16.6 % (13.2-15.2)
[2020-09-15 18:10] LABS: Alanine Aminotransferase 11 units/L (7-56); Albumin 4.3 g/dL (3.9-5); Blood Urea Nitrogen 14 mg/dL (7-17); Calcium 8.3 mg/dL (8.4-10.2); Hemolysis Index 6
[2020-09-15 18:29] LABS: BUN/Creatinine Ratio 20
[2020-09-15 18:43] LABS: Bilirubin,Urine NEG (Negative); Blood,Urine NEG (Negative); Color,Urine Yellow (Yellow); Mucus,Urine 2+ /HPF; Urobilinogen,Urine < 2.0 mg/dL (<2.0)
--- NOTE | 2020-09-15 19:41 | Emergency Department Report ---
ED General Adult HPI - General Chief complaint: Abdominal Pain Stated complaint: STOMACH PAIN Time Seen by Provider: 09/15/20 19:35 Source: patient Mode of arrival: Ambulatory Limitations: No Limitations - History of Present Illness Initial comments: 40-year-old female patient presents to the emergency department with complaints of abdominal pain for approximately 3 months. Pain is intermittent, no exacerbating or relieving factors identified. Describes the pain as "sharp" when present, localized to the periumbilical area. Surgical history includes prior . Patient does not consume alcohol on a regular basis. Last menstrual cycle was 3 months ago. No current steroid or antibiotic use. Pain worsened at this morning but has since resolved spontaneously. She is currently asymptomatic. Denies fever, chills, nausea, vomiting, diarrhea, constipation, rectal bleeding, urinary symptoms, vaginal bleeding. Denies all other complaints at this time. - Related Data Home Medications Medication Instructions Recorded Confirmed Last Taken NIFEdipine [NIFEdipine XL] 30 mg PO QDAY 08/10/13 08/10/13 08/09/13 09:00 Previous Rx's Medication Instructions Recorded Last Taken Type Ferrous Sulfate [Feosol 325 MG tab] 325 mg PO BID #60 tablet 04/21/13 08/09/13 09:00 Rx Ibuprofen [Motrin 800 MG tab] 800 mg PO Q6H PRN #30 tablet 04/21/13 08/10/13 09:00 Rx oxyCODONE /ACETAMINOPHEN [Percocet 1 - 2 tab PO Q4H PRN #30 tablet 04/21/13 04/28/13 Rx 5/325 mg] Ibuprofen [Motrin] 800 mg PO Q8HR PRN #30 tablet 03/14/17 Unknown Rx Cyclobenzaprine [Flexeril] 10 mg PO TID PRN #30 tablet 04/14/17 Unknown Rx Naproxen [Naprosyn] 500 mg PO BID PRN #30 tablet 07/12/17 Unknown Rx Meclizine [Antivert] 12.5 mg PO BID PRN #10 tablet 02/20/19 Unknown Rx Amoxicillin/Potassium Clav 1 each PO BID 10 Days #20 tablet 03/01/19 Unknown Rx [Augmentin 875-125 Tablet] Ibuprofen [Motrin 800 MG tab] 800 mg PO Q8HR PRN #30 tablet 03/01/19 Unknown Rx diphenhydrAMINE [Benadryl CAP] 25 mg PO Q8HR PRN #30 capsule 03/01/19 Unknown Rx predniSONE [Deltasone] 40 mg PO QDAY 5 Days #10 tab 03/01/19 Unknown Rx Ondansetron [Zofran ODT TAB] 8 mg PO Q12HR #20 tab.rapdis 12/04/19 Unknown Rx amLODIPine 5 mg PO DAILY #30 tab 04/30/20 Unknown Rx medroxyPROGESTERone ACETATE 10 mg PO QDAY 10 Days #10 tablet 04/30/20 Unknown Rx [Provera] Albuterol Mdi (or & Nicu Only) 2 puff IH QID PRN #8.5 gram 06/12/20 Unknown Rx [ProAir HFA Inhaler] Azithromycin [Zithromax TAB] 500 mg PO QDAY 5 Days #5 tablet 06/12/20 Unknown Rx methylPREDNISolone [Medrol 4MG 4 mg PO DAILY 6 Days #1 tab.ds.pk 06/12/20 Unknown Rx DOSEPAK (21 tabs)] Loratadine [Alavert] 10 mg PO QDAY PRN #10 tab.rapdis 08/15/20 Unknown Rx Permethrin 5% [Acticin 5% CREAM] 1 applicatio TP ONCE 1 Days #1 tube 08/15/20 Unknown Rx Prednisone [predniSONE 10 mg 10 mg PO .TAPER #1 tab.ds.pk 08/15/20 Unknown Rx (6-Day Pack, 21 Tabs)] Triamcinolone Acetonide 15 gm TP TID PRN 7 Days #1 08/15/20 Unknown Rx oint...g. Benzonatate [Tessalon Perles] 100 mg PO Q8HR PRN #12 capsule 08/21/20 Unknown Rx Dicyclomine [Bentyl] 20 mg PO QID #30 tablet 09/15/20 Unknown Rx Allergies Allergy/AdvReac Type Severity Reaction Status Date / Time No Known Allergies Allergy Verified 08/21/20 16:10 ED Review of Systems ROS: Stated complaint: STOMACH PAIN Other details as noted in HPI Other: GENERAL: Negative for fever, chills, weight change, anorexia, fatigue. ENT: Negative for ear pain, difficulty hearing, sore throat, nasal congestion, epistaxis. CARDIOVASCULAR: Negative for chest pain, palpitations, lower extremity swelling. PULMONARY: Negative for cough, dyspnea, wheezing, orthopnea, cyanosis. GASTROINTESTINAL: Positive for abdominal pain. MUSCULOSKELETAL: Negative for joint pain, joint swelling, myalgias, back pain, neck pain. NEUROLOGICAL: Negative for headache, seizure, syncope, paresthesias, weakness. INTEGUMENTARY: Negative for erythema, rash, diaphoresis, laceration, ecchymosis. HEMATOLOGICAL: Negative for hemoptysis, hematemesis, hematochezia, hematuria. PSYCHIATRIC: Negative for hallucinations, suicidal ideation, homicidal ideation, anxiety, depression. ED Past Medical Hx - Past Medical History Hx Hypertension: Yes Hx Congestive Heart Failure: No Hx Diabetes: Yes (gestational) Hx Deep Vein Thrombosis: No Hx Renal Disease: No Hx Sickle Cell Disease: No Hx Seizures: No Hx Asthma: Yes Hx COPD: No Hx HIV: No Additional medical history: hx of gestational diabetes - Surgical History Additional Surgical History: 04/21/13, hernia repair when 5 yrs old - Social History Smoking Status: Never Smoker Substance Use Type: None - Medications Home Medications: Home Medications Medication Instructions Recorded Confirmed Last Taken Type Ferrous Sulfate [Feosol 325 MG tab] 325 mg PO BID #60 tablet 04/21/13 08/10/13 08/09/13 09:00 Rx Ibuprofen [Motrin 800 MG tab] 800 mg PO Q6H PRN #30 tablet 04/21/13 08/10/13 08/10/13 09:00 Rx oxyCODONE /ACETAMINOPHEN [Percocet 1 - 2 tab PO Q4H PRN #30 tablet 04/21/13 08/10/13 04/28/13 Rx 5/325 mg] NIFEdipine [NIFEdipine XL] 30 mg PO QDAY 08/10/13 08/10/13 08/09/13 09:00 History Ibuprofen [Motrin] 800 mg PO Q8HR PRN #30 tablet 03/14/17 Unknown Rx Cyclobenzaprine [Flexeril] 10 mg PO TID PRN #30 tablet 04/14/17 Unknown Rx Naproxen [Naprosyn] 500 mg PO BID PRN #30 tablet 07/12/17 Unknown Rx Meclizine [Antivert] 12.5 mg PO BID PRN #10 tablet 02/20/19 Unknown Rx Amoxicillin/Potassium Clav 1 each PO BID 10 Days #20 tablet 03/01/19 Unknown Rx [Augmentin 875-125 Tablet] Ibuprofen [Motrin 800 MG tab] 800 mg PO Q8HR PRN #30 tablet 03/01/19 Unknown Rx diphenhydrAMINE [Benadryl CAP] 25 mg PO Q8HR PRN #30 capsule 03/01/19 Unknown Rx predniSONE [Deltasone] 40 mg PO QDAY 5 Days #10 tab 03/01/19 Unknown Rx Ondansetron [Zofran ODT TAB] 8 mg PO Q12HR #20 tab.rapdis 12/04/19 Unknown Rx amLODIPine 5 mg PO DAILY #30 tab 04/30/20 Unknown Rx medroxyPROGESTERone ACETATE 10 mg PO QDAY 10 Days #10 tablet 04/30/20 Unknown Rx [Provera] Albuterol Mdi (or & Nicu Only) 2 puff IH QID PRN #8.5 gram 06/12/20 Unknown Rx [ProAir HFA Inhaler] Azithromycin [Zithromax TAB] 500 mg PO QDAY 5 Days #5 tablet 06/12/20 Unknown Rx methylPREDNISolone [Medrol 4MG 4 mg PO DAILY 6 Days #1 tab.ds.pk 06/12/20 Unknown Rx DOSEPAK (21 tabs)] Loratadine [Alavert] 10 mg PO QDAY PRN #10 tab.rapdis 08/15/20 Unknown Rx Permethrin 5% [Acticin 5% CREAM] 1 applicatio TP ONCE 1 Days #1 tube 08/15/20 Unknown Rx Prednisone [predniSONE 10 mg 10 mg PO .TAPER #1 tab.ds.pk 08/15/20 Unknown Rx (6-Day Pack, 21 Tabs)] Triamcinolone Acetonide 15 gm TP TID PRN 7 Days #1 08/15/20 Unknown Rx oint...g. Benzonatate [Tessalon Perles] 100 mg PO Q8HR PRN #12 capsule 08/21/20 Unknown Rx Dicyclomine [Bentyl] 20 mg PO QID #30 tablet 09/15/20 Unknown Rx ED Physical Exam - General Limitations: No Limitations - Other Other exam information: General: Awake and alert. No acute distress. Head: Atraumatic, normocephalic. Eyes: EOMI. Pupils are equal and round. Normal sclera and conjunctiva. ENT: Oral mucosa is moist. Normal pharyngeal exam. Neck: Supple. No lymphadenopathy. Pulmonary: No respiratory distress. Clear to auscultation bilaterally. Cardiac: Regular rate and rhythm. Pulses are palpable and equal bilaterally. No lower extremity cyanosis or edema. Skin: Warm and dry. No rashes. Abdomen: Soft, nontender, non-protuberant. No guarding, rigidity, or rebound. Gene wel sounds are normal. No organomegaly or masses noted. McBurney's point is nontender. Wilkinson sign is negative. Back: Normal alignment. No CVA tenderness. Extremities: Symmetrical. Full range of motion intact. Neurological: Alert and oriented, appropriately interactive, no focal deficits. Psych: Cooperative. Appropriate mood and affect. Speech is evenly metered. Thoughts are logically construed. ED Course Vital Signs 09/15/20 17:09 Temperature 98.7 F Pulse Rate 90 Respiratory 20 Rate Blood Pressure 153/106 O2 Sat by Pulse 98 Oximetry ED Medical Decision Making - Lab Data Result diagrams: 09/15/20 17:30 09/15/20 17:30 - Medical Decision Making Differential diagnosis including but not limited to: appendicitis, cholecystitis, diverticulitis, bowel obstruction, bowel perforation, pancreatitis On re-evaluation, patient remains stable and asymptomatic. Repeat abdominal exam is benign. She is drinking a large soda throughout the duration of history and physical examination. She is afebrile. Vital signs are stable. Labs are unremarkable. Urinalysis without evidence of infection. test is negative. Etiology of patient's ongoing abdominal pain remains uncertain; however, there is no clinical indication for further diagnostic work-up on an emergent basis at this time. Patient will be discharged home with appropriate symptomatic treatment and referred to gastroenterology for further evaluation on an outpatient basis. Patient expressed understanding and is agreeable to plan of care. Strict return precautions provided. Repeat exam is unremarkable and benign. History, exam, diagnostic testing, and current condition do not suggest worrisome pathology to warrant further testing, continued ED treatment, admission, or surgical evaluation at this point. Given the low probability of a significant medical illness, it would be more likely to result in harm than benefit to perform further testing at this stage. Discussed findings, presumptive diagnosis, need for follow-up and specific signs/symptoms that should prompt immediate return to the emergency department. Instructions were explained in detail to the patient in addition to giving written discharge information. Patient expressed understanding and was given the opportunity to ask questions, all of which were satisfactorily answered prior to discharge home. Critical care attestation.: If time is entered above; I have spent that time in minutes in the direct care of this critically ill patient, excluding procedure time. ED Disposition Clinical Impression: Nonspecific abdominal pain Disposition: TO HOME OR SELFCARE Is pt being admited?: No Does the pt Need Aspirin: No Condition: Stable Instructions: Abdominal Pain, Adult, [id number], Abdominal Pain (ED) Additional Instructions: Take Tylenol every 4 hours as needed for pain. Take Bentyl as directed for intestinal discomfort. Maintain a healthy diet. Stay well-hydrated. Follow-up with your primary care provider this week. Call tomorrow to schedule an appointment. Follow-up with [facility] this week. Call tomorrow to schedule an appointment. Return to the emergency department immediately for new or worsening symptoms. Specifically, return to the emergency department immediately for fever, vomiting, black/bloody stools, worsening pain, or any other concerns. Prescriptions: Dicyclomine [Bentyl] 20 mg PO QID #30 tablet Referrals: [facility] [Provider Group] - 3-5 Days Forms: Work/School Release Form(ED) Time of Disposition: 19:43
== END 2020-09-15 21:12 | disposition home or self-care (01) ==
LOC: ED 16:49
DX: R10.33 Periumbilical pain (principal); I10 Essential (primary) hypertension; E11.9 Type 2 diabetes mellitus without complications; Z79.899 Other long term (current) drug therapy
CPT/HCPCS: 36415; 80053; 81001; 83690; 84703; 85025; 99283